=== PATIENT | female | born 1940 | race African-American/Black ===

== ENCOUNTER 2017-11-09 19:41 | Inpatient (IN) | payer MEDICARE, MEDICAID ==
[~2017-11-09] VITALS: Ht 167.6 cm; Wt 145.2 kg
[~2017-11-09 19:41] MED LIST: ATROV INH; FURO-151 PO; LEVO112T2 PO; LOSA100T14 PO; SPIR25TA PO; TIOT18CA3 INH
[2017-11-09] MEDS ORDERED: METHYLPREDNISOLONE SOD SUCC 125 MG/2 ML VIAL IV STA (19:51)
[2017-11-09] MEDS ORDERED: IPRATROPIUM BROMIDE (0.02%) 0.5MG/2.5ML NEB HHN STA (19:51)
[2017-11-09] MEDS ORDERED: MAGNESIUM 2 G PREMIX 50 ML IV ONE (20:00)
[2017-11-09] MEDS ORDERED: VANCOMYCIN 1 G PREMIX 200 ML IV ONE (20:00)
[2017-11-09] MEDS ORDERED: CLOPIDOGREL 75MG TABLET PO ONE (20:00)
[2017-11-09] MEDS ORDERED: LEVOFLOXACIN 750MG PREMIX 150 ML IV ONE (20:00)
[2017-11-09] MEDS: ALBUTEROL (0.083%) 2.5MG/3ML NEB HHN SCH ×2 (20:00→21:17)
[2017-11-09] MEDS ORDERED: NITROGLYCERIN OINT 1GM/INCH UDPKT TD ONE (20:00)
[2017-11-09 20:18] LABS: BG BASE EXCESS 2.4 mmol/L (-2.0-2.0); BG BILEVEL POS AIRWAY PRESSURE 15/5; BG CARBOXYHEMOGLOBIN 1.3 % (0.5-1.5); BG DEOXYHEMOGLOBIN 10.2 % (0.0-5.0); BG FRACTION INSPIRED OXYGEN 50; BG HCO3 ACT 26.8 mmol/L (22.0-26.0); BG METHEMOGLOBIN 0.1 % (0.0-1.5); BG OXYGEN SATURATION 89.7 % (92.0-98.5); BG OXYHEMOGLOBIN 88.4 % (94.0-97.0); BG PCO2 40.7 mmHg (35.0-45.0); BG PH 7.436 (7.350-7.450); BG PO2 57.1 mmHg (75.0-100.0); BG SAMPLE SITE LEFT RADIAL; BG TOTAL HEMOGLOBIN 13.9 g/dL (12.0-18.0); BG VENT MODE MASK - BIPAP; BG VENT RATE 16 set
[2017-11-09 20:42] LABS: BASOPHILS % 1.2 % (0.0-2.0); EOSINOPHILS % 0.3 % (0.0-5.0); HEMATOCRIT. 39.4 % (36.0-48.0); HEMOGLOBIN. 12.8 g/dL (12.0-16.0); LYMPHOCYTES % 39.1 % (20.0-50.0); MEAN CORPUSCULAR HEMOGLOBIN 33.6 pg (28.0-32.0); MEAN CORPUSCULAR VOLUME 103.1 fL (81.0-99.0); MEAN PLATELET VOLUME 8.9 fl (7.4-10.4); MONOCYTES % 6.3 % (2.0-8.0); NEUTROPHILS % 53.1 % (40.0-76.0); PLATELET 132 x1000/uL (130-400); RED BLOOD CELL COUNT 3.82 mill/uL (4.2-5.4); RED CELL DISTRIBUTION WIDTH 15.6 % (11.6-14.6)
[2017-11-09 20:45] LABS: CHLORIDE 97 mEq/L (98-107)
[2017-11-09 20:47] LABS: INR 1.3; PROTHROMBIN TIME 13.4 sec (9.4-11.6)
[2017-11-09 20:50] LABS: ETHANOL BLOOD < 10 mg/dL
[2017-11-09] MEDS ORDERED: ACETAMINOPHEN 325MG TABLET PO STA (21:09)
[2017-11-09] MEDS ORDERED: SODIUM CHLORIDE 0.9% 1000ML BAG (SEPSIS BOLUS) IV ONE (21:15)
[2017-11-09 23:58] LABS: CLARITY URINE CLOUDY (CLEAR); COLOR URINE DARK YELLOW (YELLOW); KETONES URINE TRACE (NEGATIVE); LEUKOCYTE ESTERASE URINE 1+ (NEGATIVE); NITRITE URINE NEGATIVE (NEGATIVE); OCCULT BLOOD URINE 3+ (NEGATIVE); PROTEIN URINE 4+ (NEGATIVE); SPECIFIC GRAVITY URINE 1.022 (1.005-1.030)
[2017-11-10] VITALS (73 sets, daily range): BP systolic 31–173; BP diastolic 18–121
[2017-11-10] MEDS ORDERED: DOCUSATE SODIUM 100MG CAPSULE PO PRN (00:15)
[2017-11-10] MEDS ORDERED: MAGNESIUM/ALUMINUM HYDROXIDE/SIMETHICONE 30ML UDC PO PRN (00:15)
[2017-11-10] MEDS ORDERED: HYDROCODONE/ACETAMINOPHEN 5/325MG TABLET PO PRN (00:15)
[2017-11-10] MEDS ORDERED: FUROSEMIDE 40MG/4ML VIAL IVP SCH (00:15)
[2017-11-10] MEDS ORDERED: ACETAMINOPHEN 650MG/20.3ML UDC GT PRN (00:15)
[2017-11-10] MEDS ORDERED: IPRATROPIUM/ALBUTEROL 0.5-3(2.5)MG/3ML NEB INH PRN (00:15)
[2017-11-10] MEDS ORDERED: ONDANSETRON HCL 4MG/2ML VIAL IV PRN (00:15)
[2017-11-10] MEDS ORDERED: FAMOTIDINE 20MG/2ML VIAL IV ONE (00:15)
[2017-11-10] MEDS ORDERED: GUAIFENESIN 200MG/10ML SUGAR FREE UDC PO PRN (00:15)
[2017-11-10] MEDS ORDERED: ACETAMINOPHEN 650MG SUPP PR PRN (01:01)
[2017-11-10] MEDS ORDERED: ACETAMINOPHEN 650MG SUPP PR ONE (02:00)
[2017-11-10] MEDS ORDERED: SODIUM CHLORIDE 0.9% 1,000 ML IV ONE (04:15)
[2017-11-10] MEDS ORDERED: NOREPINEPHRINE 4 MG in DEXT 5% WATER 246 ML IV ONE ×4 (06:30)
[2017-11-10] MEDS ORDERED: ALBUMIN HUMAN 25GM/100ML (25%) IV NR ×2 (06:30→17:15)
[2017-11-10] MEDS ORDERED: SODIUM CHLORIDE 0.9% 1,000 ML IV SCH (06:30)
[2017-11-10 07:07] LABS: CHLORIDE 102 mEq/L (98-107)
[2017-11-10 07:15] LABS: CREATINE KINASE 647 IU/L (26-192)
[2017-11-10 07:17] LABS: CREATINE KINASE MB FRACTION 4.1 ng/mL (0.5-3.6)
[2017-11-10] MEDS ORDERED: DEXTROSE 50% WATER 50ML SYRINGE IV ONE ×2 (07:28→07:30)
[2017-11-10 07:36] LABS: BG BASE EXCESS -12.7 mmol/L (-2.0-2.0); BG CARBOXYHEMOGLOBIN 0.2 % (0.5-1.5); BG DEOXYHEMOGLOBIN 3.1 % (0.0-5.0); BG FRACTION INSPIRED OXYGEN 100; BG HCO3 ACT 16.2 mmol/L (22.0-26.0); BG OXYGEN SATURATION 96.9 % (92.0-98.5); BG OXYHEMOGLOBIN 95.7 % (94.0-97.0); BG PH 7.138 (7.350-7.450); BG PO2 115.4 mmHg (75.0-100.0); BG SAMPLE SITE LEFT BRACHIAL; BG TOTAL HEMOGLOBIN 13.3 g/dL (12.0-18.0); BG VENT MODE MASK - BIPAP; BG VENT RATE 16 set
[2017-11-10] MEDS ORDERED: DEXT 5%/0.9% NACL 1,000 ML IV SCH (07:45)
[2017-11-10] MEDS ORDERED: NOREPINEPHRINE 4 MG in DEXT 5% WATER 246 ML IV PRN ×2 (08:00→11:00)
[2017-11-10] MEDS ORDERED: SODIUM BICARBONATE 8.4% 1 MEQ/ML 50ML SYR IV NR ×3 (08:15→15:45)
[2017-11-10] MEDS ORDERED: NA PHOS,M-B/NA PHOS,DI-BA ENEMA 118ML PR PRN (09:00)
[2017-11-10] MEDS: METRONIDAZOLE 500 MG PREMIX 100 ML IV SCH ×2 (09:02→17:28)
[2017-11-10] MEDS: BLOOD SUGAR DIAGNOSTIC STRIP TEST SCH ×4 (09:03→20:52)
[2017-11-10] MEDS: METHYLPREDNISOLONE SOD SUCC 40 MG/ML VIAL IV SCH ×2 (09:14→17:30)
[2017-11-10] MEDS: FAMOTIDINE 20MG/2ML VIAL IV SCH (09:14)
[2017-11-10 10:37] LABS: BG BASE EXCESS -10.8 mmol/L (-2.0-2.0); BG BILEVEL POS AIRWAY PRESSURE 15/5; BG DEOXYHEMOGLOBIN 1.2 % (0.0-5.0); BG FRACTION INSPIRED OXYGEN 100; BG HCO3 ACT 17.8 mmol/L (22.0-26.0); BG METHEMOGLOBIN 0.8 % (0.0-1.5); BG OXYGEN SATURATION 98.8 % (92.0-98.5); BG PCO2 50.6 mmHg (35.0-45.0); BG PH 7.164 (7.350-7.450); BG PO2 190.1 mmHg (75.0-100.0); BG SAMPLE SITE RIGHT RADIAL; BG TOTAL HEMOGLOBIN 13.1 g/dL (12.0-18.0); BG VENT MODE MASK - BIPAP
[2017-11-10] MEDS: AZTREONAM 1 G in DEXTROSE 5% WATER 50 ML IV SCH ×2 (10:43→21:16)
[2017-11-10] MEDS ORDERED: SODIUM BICARBONATE 100 MEQ in DEXTROSE 5% WATER 1,000 ML IV SCH (10:45)
[2017-11-10 11:25] LABS: BASOPHILS % 0.5 % (0.0-2.0); HEMATOCRIT. 38.1 % (36.0-48.0); HEMOGLOBIN. 11.9 g/dL (12.0-16.0); LYMPHOCYTES % 11.9 % (20.0-50.0); MEAN CORPUSCULAR HEMOGLOBIN 33.2 pg (28.0-32.0); MEAN CORPUSCULAR VOLUME 106.7 fL (81.0-99.0); MEAN PLATELET VOLUME 9.2 fl (7.4-10.4); MONOCYTES % 4.1 % (2.0-8.0); NEUTROPHILS % 83.5 % (40.0-76.0); RED BLOOD CELL COUNT 3.57 mill/uL (4.2-5.4); RED CELL DISTRIBUTION WIDTH 16.3 % (11.6-14.6)
[2017-11-10 11:26] LABS: PLATELET 26 x1000/uL (130-400)
[2017-11-10] MEDS ORDERED: VANCOMYCIN 1250MG in DEXTROSE 5% WATER 250ML IV NR (12:00)
[2017-11-10] MEDS: SODIUM BICARBONATE 100 MEQ in DEXTROSE 5% WATER 1,000 ML IV SCH (12:19)
[2017-11-10] MEDS: DEXTROSE 50% WATER 50ML SYRINGE IV PRN (12:19)
[2017-11-10 12:26] LABS: D-DIMER > 35.20 mg/L FEU (<0.50)
[2017-11-10 12:36] LABS: PLATELET ESTIMATE MARKEDLY DECREASED
[2017-11-10] MEDS: DOXYCYCLINE 100 MG in DEXT 5% WATER 100 ML IV SCH ×2 (13:40→22:32)
[2017-11-10] MEDS: SODIUM CHLORIDE 0.9% INJ 3ML FLUSH IVF SCH ×2 (14:00→21:16)
[2017-11-10] MEDS: IPRATROPIUM/ALBUTEROL 0.5-3(2.5)MG/3ML NEB INH SCH ×3 (14:00→20:24)
[2017-11-10] MEDS ORDERED: LIDOCAINE HCL/PF 1% 2ML VIAL ONE (14:33)
[2017-11-10 14:54] LABS: CHLORIDE 97 mEq/L (98-107)
[2017-11-10 15:05] LABS: T4 FREE 0.54 ng/dL (0.76-1.46)
[2017-11-10 15:06] LABS: CREATINE KINASE MB FRACTION 15.4 ng/mL (0.5-3.6)
[2017-11-10] MEDS: NOREPINEPHRINE 16 MG in DEXT 5% WATER 234 ML IV PRN (15:11)
[2017-11-10 15:38] LABS: HEPATITIS B SURFACE ANTIGEN NEGATIVE
[2017-11-10] MEDS ORDERED: PHYTONADIONE 10MG/ML AMP SUBCUT NR (15:45)
[2017-11-10 16:05] LABS: BG BASE EXCESS -14.3 mmol/L (-2.0-2.0); BG BILEVEL POS AIRWAY PRESSURE 15/5; BG CARBOXYHEMOGLOBIN 0.3 % (0.5-1.5); BG DEOXYHEMOGLOBIN 0.9 % (0.0-5.0); BG FRACTION INSPIRED OXYGEN 100; BG HCO3 ACT 13.2 mmol/L (22.0-26.0); BG METHEMOGLOBIN 0.5 % (0.0-1.5); BG OXYGEN SATURATION 99.1 % (92.0-98.5); BG OXYHEMOGLOBIN 98.3 % (94.0-97.0); BG PCO2 36.5 mmHg (35.0-45.0); BG PH 7.176 (7.350-7.450); BG PO2 217.6 mmHg (75.0-100.0); BG SAMPLE SITE RIGHT RADIAL; BG TOTAL HEMOGLOBIN 12.8 g/dL (12.0-18.0); BG VENT MODE MASK - BIPAP
[2017-11-10 16:06] LABS: HEPATITIS B CORE AB IGM NEGATIVE
[2017-11-10 16:07] LABS: HEPATITIS A AB IGM NEGATIVE (NEGATIVE)
[2017-11-10 18:23] LABS: BG BASE EXCESS -13.2 mmol/L (-2.0-2.0); BG BILEVEL POS AIRWAY PRESSURE 18/5; BG CARBOXYHEMOGLOBIN 0.2 % (0.5-1.5); BG DEOXYHEMOGLOBIN 4.3 % (0.0-5.0); BG FRACTION INSPIRED OXYGEN 60; BG HCO3 ACT 13.8 mmol/L (22.0-26.0); BG METHEMOGLOBIN 0.2 % (0.0-1.5); BG OXYGEN SATURATION 95.7 % (92.0-98.5); BG OXYHEMOGLOBIN 95.3 % (94.0-97.0); BG PCO2 35.6 mmHg (35.0-45.0); BG PH 7.206 (7.350-7.450); BG PO2 91.5 mmHg (75.0-100.0); BG SAMPLE SITE RIGHT RADIAL; BG TOTAL HEMOGLOBIN 12.4 g/dL (12.0-18.0); BG VENT MODE MASK - BIPAP; BG VENT RATE 20 set
[2017-11-10] MEDS ORDERED: LEVO50TA8 PO (19:56)
[2017-11-10] MEDS ORDERED: POTA-9 PO (19:56)
[2017-11-10] MEDS ORDERED: FURO80TA3 PO (19:56)
[2017-11-10] MEDS ORDERED: LORA1TAB PO (19:56)
[2017-11-10] MEDS ORDERED: ALBU18HF2 IH (19:56)
[2017-11-10] MEDS ORDERED: PHENYLEPHRINE 20 MG in DEXT 5% WATER 248 ML IV PRN (20:30)
[2017-11-10] MEDS ORDERED: SODIUM CHLORIDE 0.9% 1000ML BAG (SEPSIS BOLUS) IV NR (20:30)
[2017-11-11] VITALS (107 sets, daily range): BP systolic 74–157; BP diastolic 33–106
[2017-11-11] MEDS: METRONIDAZOLE 500 MG PREMIX 100 ML IV SCH ×3 (00:13→17:00)
[2017-11-11] MEDS: METHYLPREDNISOLONE SOD SUCC 40 MG/ML VIAL IV SCH ×3 (00:45→17:01)
[2017-11-11] MEDS: IPRATROPIUM/ALBUTEROL 0.5-3(2.5)MG/3ML NEB INH SCH ×4 (01:05→20:57)
[2017-11-11] MEDS: NOREPINEPHRINE 16 MG in DEXT 5% WATER 234 ML IV PRN ×2 (02:40→22:53)
[2017-11-11 04:49] LABS: BASOPHILS % 0.2 % (0.0-2.0); EOSINOPHILS % 0.2 % (0.0-5.0); HEMATOCRIT. 35.2 % (36.0-48.0); HEMOGLOBIN. 10.7 g/dL (12.0-16.0); LYMPHOCYTES % 8.8 % (20.0-50.0); MEAN CORPUSCULAR HEMOGLOBIN 33.6 pg (28.0-32.0); MEAN CORPUSCULAR VOLUME 110.1 fL (81.0-99.0); MEAN PLATELET VOLUME 10.4 fl (7.4-10.4); MONOCYTES % 4.8 % (2.0-8.0); RED CELL DISTRIBUTION WIDTH 17.1 % (11.6-14.6)
[2017-11-11 05:05] LABS: PLATELET 36 x1000/uL (130-400)
[2017-11-11 05:08] LABS: CHLORIDE 98 mEq/L (98-107)
[2017-11-11 05:17] LABS: LDL CHOLESTEROL 44 mg/dL (5-100)
[2017-11-11 05:18] LABS: HDL CHOLESTEROL 36 mg/dL (40-59)
[2017-11-11] MEDS: SODIUM CHLORIDE 0.9% INJ 3ML FLUSH IVF SCH ×3 (05:18→21:13)
[2017-11-11] MEDS: BLOOD SUGAR DIAGNOSTIC STRIP TEST SCH ×4 (06:21→21:00)
[2017-11-11 08:19] LABS: BG BILEVEL POS AIRWAY PRESSURE 20/5; BG CARBOXYHEMOGLOBIN 0.3 % (0.5-1.5); BG DEOXYHEMOGLOBIN 1.6 % (0.0-5.0); BG FRACTION INSPIRED OXYGEN 60; BG HCO3 ACT 18.4 mmol/L (22.0-26.0); BG METHEMOGLOBIN 0.2 % (0.0-1.5); BG OXYGEN SATURATION 98.4 % (92.0-98.5); BG OXYHEMOGLOBIN 97.9 % (94.0-97.0); BG PCO2 45.7 mmHg (35.0-45.0); BG PH 7.222 (7.350-7.450); BG PO2 141.2 mmHg (75.0-100.0); BG SAMPLE SITE RIGHT RADIAL; BG TOTAL HEMOGLOBIN 11.5 g/dL (12.0-18.0); BG VENT MODE MASK - BIPAP; BG VENT RATE 20 set
[2017-11-11] MEDS: FAMOTIDINE 20MG/2ML VIAL IV SCH (08:24)
[2017-11-11] MEDS: DOXYCYCLINE 100 MG in DEXT 5% WATER 100 ML IV SCH ×2 (09:30→20:24)
[2017-11-11] MEDS: SODIUM BICARBONATE 100 MEQ in DEXTROSE 5% WATER 1,000 ML IV SCH ×2 (10:00→20:24)
[2017-11-11] MEDS ORDERED: PROPOFOL 10MG/ML 100ML 100 ML IV PRN (10:00)
[2017-11-11] MEDS: AZTREONAM 1 G in DEXTROSE 5% WATER 50 ML IV SCH (10:45)
[2017-11-11] MEDS ORDERED: VANCOMYCIN 1 G PREMIX 200 ML IV SCH (12:00)
[2017-11-11 13:03] LABS: BG BASE EXCESS -7.7 mmol/L (-2.0-2.0); BG CARBOXYHEMOGLOBIN 0.3 % (0.5-1.5); BG DEOXYHEMOGLOBIN 3.4 % (0.0-5.0); BG FRACTION INSPIRED OXYGEN 50; BG HCO3 ACT 17.8 mmol/L (22.0-26.0); BG OXYGEN SATURATION 96.6 % (92.0-98.5); BG OXYHEMOGLOBIN 96.3 % (94.0-97.0); BG PH 7.311 (7.350-7.450); BG PO2 93.9 mmHg (75.0-100.0); BG SAMPLE SITE LEFT RADIAL; BG TIDAL VOLUME(mL) 550 mL; BG TOTAL HEMOGLOBIN 11.7 g/dL (12.0-18.0); BG VENT MODE VENT - A/C; BG VENT RATE 18 set
[2017-11-11] MEDS: MIDAZOLAM HCL 50 MG in DEXTROSE 5% WATER 40 ML IV PRN (14:26)
[2017-11-11] MEDS: FENTANYL CITRATE/PF 500 MCG in SODIUM CHLORIDE 0.9% 40 ML IV PRN (14:27)
[2017-11-11] MEDS ORDERED: ETOMIDATE 2MG/ML 10ML VIAL IV ONE (14:45)
[2017-11-11] MEDS ORDERED: SUCCINYLCHOLINE CHLORIDE 200MG/10ML VIAL IV ONE (14:45)
[2017-11-11] MEDS: DEXTROSE 50% WATER 50ML SYRINGE IV PRN ×2 (17:02→20:40)
[2017-11-11] MEDS: AZTREONAM 1G in DEXTROSE 5% WATER 50ML IV SCH (22:53)
[2017-11-12] VITALS (84 sets, daily range): BP systolic 91–154; BP diastolic 54–114
[2017-11-12] MEDS: METHYLPREDNISOLONE SOD SUCC 40 MG/ML VIAL IV SCH ×3 (00:52→17:27)
[2017-11-12] MEDS: MIDAZOLAM HCL 50 MG in DEXTROSE 5% WATER 40 ML IV PRN (02:15)
[2017-11-12] MEDS: METRONIDAZOLE 500 MG PREMIX 100 ML IV SCH ×3 (02:15→17:29)
[2017-11-12] MEDS: FENTANYL CITRATE/PF 500 MCG in SODIUM CHLORIDE 0.9% 40 ML IV PRN (02:16)
[2017-11-12] MEDS: IPRATROPIUM/ALBUTEROL 0.5-3(2.5)MG/3ML NEB INH SCH ×4 (02:36→20:19)
[2017-11-12] MEDS: BLOOD SUGAR DIAGNOSTIC STRIP TEST SCH ×3 (05:09→17:03)
[2017-11-12] MEDS: SODIUM CHLORIDE 0.9% INJ 3ML FLUSH IVF SCH ×3 (05:09→21:07)
[2017-11-12 05:40] LABS: HEMATOCRIT. 32.2 % (36.0-48.0); HEMOGLOBIN. 10.6 g/dL (12.0-16.0); MEAN CORPUSCULAR HEMOGLOBIN 34.1 pg (28.0-32.0); MEAN CORPUSCULAR VOLUME 103.4 fL (81.0-99.0); MEAN PLATELET VOLUME 10.5 fl (7.4-10.4); RED BLOOD CELL COUNT 3.11 mill/uL (4.2-5.4); RED CELL DISTRIBUTION WIDTH 16.2 % (11.6-14.6)
[2017-11-12 05:44] LABS: CHLORIDE 92 mEq/L (98-107)
[2017-11-12 07:48] LABS: BG BASE EXCESS -1.8 mmol/L (-2.0-2.0); BG CARBOXYHEMOGLOBIN 0.1 % (0.5-1.5); BG DEOXYHEMOGLOBIN 1.7 % (0.0-5.0); BG METHEMOGLOBIN 0.1 % (0.0-1.5); BG OXYGEN SATURATION 98.3 % (92.0-98.5); BG OXYHEMOGLOBIN 98.1 % (94.0-97.0); BG PCO2 29.2 mmHg (35.0-45.0); BG PH 7.474 (7.350-7.450); BG PO2 125.6 mmHg (75.0-100.0); BG SAMPLE SITE RIGHT RADIAL; BG TIDAL VOLUME(mL) 550 mL; BG TOTAL HEMOGLOBIN 10.9 g/dL (12.0-18.0); BG VENT MODE VENT - A/C; BG VENT RATE 18 set
[2017-11-12] MEDS: AZTREONAM 1G in DEXTROSE 5% WATER 50ML IV SCH (08:11)
[2017-11-12] MEDS: FAMOTIDINE 20MG/2ML VIAL IV SCH (08:11)
[2017-11-12] MEDS: DOXYCYCLINE 100 MG in DEXT 5% WATER 100 ML IV SCH ×2 (08:50→20:28)
[2017-11-12 12:06] LABS: TOTAL IRON BINDING CAPACITY 247 ug/dL (250-450)
[2017-11-12 12:08] LABS: AMMONIA 47 uMol/L (<32)
[2017-11-12 12:36] LABS: CREATINE KINASE 3066 IU/L (26-192)
[2017-11-12 12:57] LABS: FERRITIN > 1650 ng/mL (10-291)
[2017-11-12 12:57] LABS: NUCLEATED RED BLOOD CELLS 2 /100 WBC; PLATELET ESTIMATE MARKEDLY DECREASED
[2017-11-12 12:58] LABS: PLATELET 26 x1000/uL (130-400)
[2017-11-12 14:49] LABS: FOLIC ACID (FOLATE) SERUM > 20.00 ng/mL (>5.38); VITAMIN B12 SERUM > 2000.0 pg/mL (211-911)
[2017-11-12] MEDS: DEXTROSE 50% WATER 50ML SYRINGE IV PRN (17:27)
[2017-11-13] VITALS (96 sets, daily range): BP systolic 87–145; BP diastolic 48–89
[2017-11-13] MEDS: METHYLPREDNISOLONE SOD SUCC 40 MG/ML VIAL IV SCH ×3 (00:03→21:50)
[2017-11-13] MEDS: BLOOD SUGAR DIAGNOSTIC STRIP TEST SCH ×4 (00:04→19:00)
[2017-11-13] MEDS: DEXTROSE 50% WATER 50ML SYRINGE IV PRN ×5 (00:09→02:03)
[2017-11-13] MEDS ORDERED: DEXTROSE 5% WATER 1,000 ML IV SCH (00:45)
[2017-11-13] MEDS: METRONIDAZOLE 500 MG PREMIX 100 ML IV SCH ×3 (01:06→17:48)
[2017-11-13] MEDS: IPRATROPIUM/ALBUTEROL 0.5-3(2.5)MG/3ML NEB INH SCH ×4 (01:48→20:13)
[2017-11-13 02:57] LABS: CHLORIDE 94 mEq/L (98-107)
[2017-11-13] MEDS ORDERED: DEXTROSE 10% WATER 1,000 ML IV SCH ×2 (03:00→07:30)
[2017-11-13] MEDS ORDERED: DEXT 10% WATER 1,000 ML IV SCH (03:00)
[2017-11-13 03:01] LABS: HEMATOCRIT. 30.3 % (36.0-48.0); HEMOGLOBIN. 10.2 g/dL (12.0-16.0); MEAN CORPUSCULAR HEMOGLOBIN 34.1 pg (28.0-32.0); MEAN CORPUSCULAR VOLUME 101.6 fL (81.0-99.0); MEAN PLATELET VOLUME 9.8 fl (7.4-10.4); RED BLOOD CELL COUNT 2.98 mill/uL (4.2-5.4); RED CELL DISTRIBUTION WIDTH 15.8 % (11.6-14.6)
[2017-11-13 03:03] LABS: PHOSPHORUS 3.7 mg/dL (2.5-4.9)
[2017-11-13 03:12] LABS: PLATELET 38 x1000/uL (130-400)
[2017-11-13 03:18] LABS: CREATINE KINASE 2210 IU/L (26-192)
[2017-11-13] MEDS: SODIUM CHLORIDE 0.9% INJ 3ML FLUSH IVF SCH ×3 (05:11→21:50)
[2017-11-13 07:26] LABS: NUCLEATED RED BLOOD CELLS 1 /100 WBC; PLATELET ESTIMATE MARKEDLY DECREASED
[2017-11-13] MEDS: FAMOTIDINE 20MG/2ML VIAL IV SCH (08:26)
[2017-11-13] MEDS: DOXYCYCLINE 100 MG in DEXT 5% WATER 100 ML IV SCH ×2 (08:26→21:50)
[2017-11-13] MEDS: METOCLOPRAMIDE HCL 10MG/2ML VIAL IV SCH ×3 (08:26→21:50)
[2017-11-13 08:37] LABS: BG BASE EXCESS 0.9 mmol/L (-2.0-2.0); BG DEOXYHEMOGLOBIN 1.6 % (0.0-5.0); BG FRACTION INSPIRED OXYGEN 50; BG HCO3 ACT 24.4 mmol/L (22.0-26.0); BG METHEMOGLOBIN 0.1 % (0.0-1.5); BG OXYGEN SATURATION 98.4 % (92.0-98.5); BG OXYHEMOGLOBIN 98.3 % (94.0-97.0); BG PCO2 35.1 mmHg (35.0-45.0); BG PO2 128.2 mmHg (75.0-100.0); BG SAMPLE SITE RIGHT BRACHIAL; BG TIDAL VOLUME(mL) 550 mL; BG TOTAL HEMOGLOBIN 11.7 g/dL (12.0-18.0); BG VENT MODE VENT - A/C; BG VENT RATE 14 set
[2017-11-13 09:33] LABS: AMMONIA 67 uMol/L (<32)
[2017-11-13 09:37] LABS: INR 3.8; PROTHROMBIN TIME 39.4 sec (9.4-11.6)
[2017-11-13] MEDS ORDERED: VANCOMYCIN IV SCH (10:00)
[2017-11-13] MEDS ORDERED: DEXT 5% IV SCH (10:00)
[2017-11-13] MEDS ORDERED: WATER IV SCH (10:00)
[2017-11-13] MEDS ORDERED: VANCOMYCIN 1 G PREMIX 200 ML IV NR (10:00)
[2017-11-13] MEDS ORDERED: METOCLOPRAMIDE HCL 10MG/2ML VIAL IV SCH (12:00)
[2017-11-13] MEDS: LACTULOSE 20G/30ML UDC PO SCH ×2 (13:24→17:48)
[2017-11-14] VITALS (94 sets, daily range): BP systolic 73–146; BP diastolic 19–98
[2017-11-14] MEDS: BLOOD SUGAR DIAGNOSTIC STRIP TEST SCH ×5 (00:03→23:55)
[2017-11-14] MEDS: IPRATROPIUM/ALBUTEROL 0.5-3(2.5)MG/3ML NEB INH SCH ×4 (03:18→20:36)
[2017-11-14] MEDS: METRONIDAZOLE 500 MG PREMIX 100 ML IV SCH ×3 (03:57→17:51)
[2017-11-14] MEDS: DEXTROSE 5% WATER 1,000 ML IV SCH ×2 (04:17→23:38)
[2017-11-14 05:32] LABS: HEMATOCRIT. 34.9 % (36.0-48.0); HEMOGLOBIN. 11.5 g/dL (12.0-16.0); MEAN CORPUSCULAR HEMOGLOBIN 33.2 pg (28.0-32.0); MEAN CORPUSCULAR VOLUME 100.8 fL (81.0-99.0); MEAN PLATELET VOLUME 10.7 fl (7.4-10.4); RED BLOOD CELL COUNT 3.47 mill/uL (4.2-5.4); RED CELL DISTRIBUTION WIDTH 15.4 % (11.6-14.6)
[2017-11-14 05:33] LABS: AMMONIA 63 uMol/L (<32)
[2017-11-14] MEDS: SODIUM CHLORIDE 0.9% INJ 3ML FLUSH IVF SCH ×3 (05:40→21:33)
[2017-11-14] MEDS: METOCLOPRAMIDE HCL 10MG/2ML VIAL IV SCH ×3 (05:41→21:32)
[2017-11-14 05:43] LABS: CHLORIDE 95 mEq/L (98-107)
[2017-11-14 05:44] LABS: PLATELET 37 x1000/uL (130-400)
[2017-11-14 06:01] LABS: PHOSPHORUS 2.9 mg/dL (2.5-4.9)
[2017-11-14 06:24] LABS: CREATINE KINASE 1398 IU/L (26-192)
[2017-11-14 06:54] LABS: NUCLEATED RED BLOOD CELLS 2 /100 WBC; PLATELET ESTIMATE MARKEDLY DECREASED
[2017-11-14] MEDS: METHYLPREDNISOLONE SOD SUCC 40 MG/ML VIAL IV SCH (08:59)
[2017-11-14] MEDS: DOXYCYCLINE 100 MG in DEXT 5% WATER 100 ML IV SCH ×2 (08:59→21:32)
[2017-11-14] MEDS: LACTULOSE 20G/30ML UDC PO SCH (08:59)
[2017-11-14] MEDS: FAMOTIDINE 20MG/2ML VIAL IV SCH (09:00)
[2017-11-14] MEDS ORDERED: MAGNESIUM 2 G PREMIX 50 ML IV ONE (09:30)
[2017-11-14 10:07] LABS: BG BASE EXCESS 2.8 mmol/L (-2.0-2.0); BG CARBOXYHEMOGLOBIN 0.7 % (0.5-1.5); BG DEOXYHEMOGLOBIN 2.4 % (0.0-5.0); BG HCO3 ACT 26.3 mmol/L (22.0-26.0); BG METHEMOGLOBIN 0.1 % (0.0-1.5); BG OXYGEN SATURATION 97.6 % (92.0-98.5); BG OXYHEMOGLOBIN 96.8 % (94.0-97.0); BG PCO2 36.8 mmHg (35.0-45.0); BG PH 7.472 (7.350-7.450); BG PO2 101.7 mmHg (75.0-100.0); BG SAMPLE SITE RIGHT RADIAL; BG TIDAL VOLUME(mL) 550 mL; BG TOTAL HEMOGLOBIN 13.3 g/dL (12.0-18.0); BG VENT MODE VENT - A/C; BG VENT RATE 14 set
[2017-11-14] MEDS ORDERED: MAGNESIUM SULFATE 2 GM in DEXTROSE 5% WATER 50 ML IV NR (10:30)
[2017-11-14] MEDS ORDERED: LACTULOSE 300 ML in WATER FOR IRRIGATION,STERILE 700 ML PR SCH (11:00)
[2017-11-14] MEDS: NYSTATIN POWDER 15GM TOP SCH (15:25)
[2017-11-15] VITALS (97 sets, daily range): BP systolic 85–165; BP diastolic 42–101
[2017-11-15] MEDS: METRONIDAZOLE 500 MG PREMIX 100 ML IV SCH ×3 (01:31→17:10)
[2017-11-15] MEDS: IPRATROPIUM/ALBUTEROL 0.5-3(2.5)MG/3ML NEB INH SCH ×2 (01:54→20:25)
[2017-11-15 04:33] LABS: HEMATOCRIT. 36.8 % (36.0-48.0); HEMOGLOBIN. 12.1 g/dL (12.0-16.0); MEAN CORPUSCULAR HEMOGLOBIN 33.1 pg (28.0-32.0); MEAN CORPUSCULAR VOLUME 100.7 fL (81.0-99.0); MEAN PLATELET VOLUME 11.1 fl (7.4-10.4); RED BLOOD CELL COUNT 3.65 mill/uL (4.2-5.4); RED CELL DISTRIBUTION WIDTH 15.6 % (11.6-14.6)
[2017-11-15 04:43] LABS: CHLORIDE 95 mEq/L (98-107)
[2017-11-15 04:53] LABS: PHOSPHORUS 3.1 mg/dL (2.5-4.9)
[2017-11-15] MEDS: SODIUM CHLORIDE 0.9% INJ 3ML FLUSH IVF SCH ×3 (05:16→21:03)
[2017-11-15] MEDS: BLOOD SUGAR DIAGNOSTIC STRIP TEST SCH ×3 (05:44→17:44)
[2017-11-15] MEDS: METOCLOPRAMIDE HCL 10MG/2ML VIAL IV SCH ×3 (05:44→21:02)
[2017-11-15 06:51] LABS: NUCLEATED RED BLOOD CELLS 4 /100 WBC
[2017-11-15 06:52] LABS: PLATELET ESTIMATE MARKEDLY DECREASED
[2017-11-15 06:53] LABS: PLATELET 41 x1000/uL (130-400)
[2017-11-15 09:22] LABS: BG BASE EXCESS 3.8 mmol/L (-2.0-2.0); BG DEOXYHEMOGLOBIN 0.9 % (0.0-5.0); BG FRACTION INSPIRED OXYGEN 50; BG HCO3 ACT 29.5 mmol/L (22.0-26.0); BG METHEMOGLOBIN 0.3 % (0.0-1.5); BG OXYGEN SATURATION 99.1 % (92.0-98.5); BG OXYHEMOGLOBIN 97.8 % (94.0-97.0); BG PCO2 48.7 mmHg (35.0-45.0); BG PO2 148.1 mmHg (75.0-100.0); BG SAMPLE SITE RIGHT RADIAL; BG TIDAL VOLUME(mL) 550 mL; BG VENT MODE VENT - A/C; BG VENT RATE 10 set
[2017-11-15] MEDS: DOXYCYCLINE 100 MG in DEXT 5% WATER 100 ML IV SCH ×2 (09:55→21:02)
[2017-11-15] MEDS: NYSTATIN POWDER 15GM TOP SCH (09:55)
[2017-11-15] MEDS: FAMOTIDINE 20MG/2ML VIAL IV SCH (09:55)
[2017-11-15] MEDS ORDERED: LACTULOSE 300 ML in WATER FOR IRRIGATION,STERILE 700 ML PR PRN (10:45)
[2017-11-15 11:16] LABS: INR 2.4; PROTHROMBIN TIME 25.4 sec (9.4-11.6)
[2017-11-15] MEDS ORDERED: VANCOMYCIN 1 G PREMIX 200 ML IV NR (15:00)
[2017-11-15] MEDS: THIAMINE HCL 100MG TABLET PO SCH (17:10)
[2017-11-15 20:12] LABS: AMMONIA 36 uMol/L (<32)
[2017-11-15] MEDS: DEXTROSE 5% WATER 1,000 ML IV SCH (21:04)
[2017-11-16] VITALS (64 sets, daily range): BP systolic 106–202; BP diastolic 42–125
[2017-11-16] MEDS: METRONIDAZOLE 500 MG PREMIX 100 ML IV SCH ×3 (01:26→17:31)
[2017-11-16] MEDS: IPRATROPIUM/ALBUTEROL 0.5-3(2.5)MG/3ML NEB INH SCH ×4 (01:53→20:18)
[2017-11-16] MEDS: BLOOD SUGAR DIAGNOSTIC STRIP TEST SCH ×4 (05:06→17:31)
[2017-11-16] MEDS: SODIUM CHLORIDE 0.9% INJ 3ML FLUSH IVF SCH ×3 (05:06→21:00)
[2017-11-16] MEDS: METOCLOPRAMIDE HCL 10MG/2ML VIAL IV SCH ×3 (05:06→21:00)
[2017-11-16 05:39] LABS: HEMATOCRIT. 35.6 % (36.0-48.0); HEMOGLOBIN. 11.8 g/dL (12.0-16.0); MEAN CORPUSCULAR HEMOGLOBIN 33.2 pg (28.0-32.0); MEAN CORPUSCULAR VOLUME 100.2 fL (81.0-99.0); MEAN PLATELET VOLUME 10.7 fl (7.4-10.4); PLATELET 57 x1000/uL (130-400); RED BLOOD CELL COUNT 3.56 mill/uL (4.2-5.4); RED CELL DISTRIBUTION WIDTH 16.3 % (11.6-14.6)
[2017-11-16 05:50] LABS: AMMONIA 44 uMol/L (<32)
[2017-11-16 05:58] LABS: CHLORIDE 94 mEq/L (98-107)
[2017-11-16 06:11] LABS: PHOSPHORUS 2.8 mg/dL (2.5-4.9)
[2017-11-16 07:16] LABS: BG BASE EXCESS 2.8 mmol/L (-2.0-2.0); BG CARBOXYHEMOGLOBIN 1.1 % (0.5-1.5); BG DEOXYHEMOGLOBIN 3.8 % (0.0-5.0); BG HCO3 ACT 26.7 mmol/L (22.0-26.0); BG METHEMOGLOBIN 0.1 % (0.0-1.5); BG OXYGEN SATURATION 96.2 % (92.0-98.5); BG PCO2 38.5 mmHg (35.0-45.0); BG PH 7.459 (7.350-7.450); BG PO2 81.2 mmHg (75.0-100.0); BG SAMPLE SITE RIGHT RADIAL; BG TIDAL VOLUME(mL) 550 mL; BG TOTAL HEMOGLOBIN 13.3 g/dL (12.0-18.0); BG VENT MODE VENT - SIMV; BG VENT RATE 10 set
[2017-11-16 07:27] LABS: NUCLEATED RED BLOOD CELLS 2 /100 WBC; PLATELET ESTIMATE DECREASED
[2017-11-16] MEDS: DOXYCYCLINE 100 MG in DEXT 5% WATER 100 ML IV SCH ×2 (09:16→20:57)
[2017-11-16] MEDS: THIAMINE HCL 100MG TABLET PO SCH (09:16)
[2017-11-16] MEDS: FAMOTIDINE 20MG/2ML VIAL IV SCH (09:16)
[2017-11-16] MEDS: NYSTATIN POWDER 15GM TOP SCH (09:17)
[2017-11-16 09:51] LABS: BG BASE EXCESS 6.5 mmol/L (-2.0-2.0); BG CARBOXYHEMOGLOBIN 1.4 % (0.5-1.5); BG CPAP (cmH2O) 0 cm(H2O); BG DEOXYHEMOGLOBIN 4.6 % (0.0-5.0); BG METHEMOGLOBIN 0.3 % (0.0-1.5); BG OXYGEN SATURATION 95.3 % (92.0-98.5); BG OXYHEMOGLOBIN 93.7 % (94.0-97.0); BG PCO2 43.9 mmHg (35.0-45.0); BG PH 7.467 (7.350-7.450); BG PO2 79.6 mmHg (75.0-100.0); BG SAMPLE SITE RIGHT RADIAL; BG TOTAL HEMOGLOBIN 13.5 g/dL (12.0-18.0); BG VENT MODE VENT - CPAP
[2017-11-16] MEDS ORDERED: METHYLPREDNISOLONE SOD SUCC 125 MG/2 ML VIAL IV NR (11:20)
[2017-11-16] MEDS ORDERED: PROPOFOL 10MG/ML 100ML 100 ML IV PRN (11:45)
[2017-11-16] MEDS ORDERED: LORAZEPAM 2MG/ML CPJ IV PRN (11:45)
[2017-11-16 11:48] LABS: BG BASE EXCESS -1.2 mmol/L (-2.0-2.0); BG CARBOXYHEMOGLOBIN 0.6 % (0.5-1.5); BG DEOXYHEMOGLOBIN 1.2 % (0.0-5.0); BG HCO3 ACT 24.1 mmol/L (22.0-26.0); BG METHEMOGLOBIN 0.5 % (0.0-1.5); BG OXYGEN SATURATION 98.8 % (92.0-98.5); BG OXYHEMOGLOBIN 97.7 % (94.0-97.0); BG PCO2 42.6 mmHg (35.0-45.0); BG PH 7.371 (7.350-7.450); BG PO2 163.7 mmHg (75.0-100.0); BG SAMPLE SITE RIGHT RADIAL; BG TIDAL VOLUME(mL) 550 mL; BG TOTAL HEMOGLOBIN 13.9 g/dL (12.0-18.0); BG VENT MODE VENT - A/C; BG VENT RATE 12 set
[2017-11-16] MEDS ORDERED: ETOMIDATE 2MG/ML 10ML VIAL IV ONE (14:02)
[2017-11-16] MEDS: DEXT 5%/0.9% NACL 1,000 ML IV SCH (15:20)
[2017-11-16] MEDS ORDERED: ERYTHROMYCIN LACTOBIONATE 500 MG in SODIUM CHLORIDE 0.9% 100 ML IV SCH (16:00)
[2017-11-16] MEDS: METHYLPREDNISOLONE SOD SUCC 125 MG/2 ML VIAL IV SCH (17:31)
[2017-11-17] VITALS (49 sets, daily range): BP systolic 95–157; BP diastolic 53–87
[2017-11-17] MEDS: BLOOD SUGAR DIAGNOSTIC STRIP TEST SCH ×4 (00:44→17:23)
[2017-11-17] MEDS: METHYLPREDNISOLONE SOD SUCC 125 MG/2 ML VIAL IV SCH ×2 (00:44→06:14)
[2017-11-17] MEDS: METRONIDAZOLE 500 MG PREMIX 100 ML IV SCH ×3 (01:04→17:23)
[2017-11-17] MEDS: IPRATROPIUM/ALBUTEROL 0.5-3(2.5)MG/3ML NEB INH SCH ×5 (02:24→20:04)
[2017-11-17 05:44] LABS: HEMOGLOBIN. 11.7 g/dL (12.0-16.0); MEAN CORPUSCULAR HEMOGLOBIN 33.7 pg (28.0-32.0); MEAN CORPUSCULAR VOLUME 100.4 fL (81.0-99.0); PLATELET 63 x1000/uL (130-400); RED BLOOD CELL COUNT 3.48 mill/uL (4.2-5.4); RED CELL DISTRIBUTION WIDTH 15.8 % (11.6-14.6)
[2017-11-17 05:53] LABS: CHLORIDE 94 mEq/L (98-107)
[2017-11-17 05:56] LABS: AMMONIA 27 uMol/L (<32)
[2017-11-17 06:02] LABS: PHOSPHORUS 3.2 mg/dL (2.5-4.9)
[2017-11-17] MEDS: SODIUM CHLORIDE 0.9% INJ 3ML FLUSH IVF SCH ×3 (06:14→21:24)
[2017-11-17] MEDS: METOCLOPRAMIDE HCL 10MG/2ML VIAL IV SCH ×3 (06:14→21:24)
[2017-11-17 07:05] LABS: NUCLEATED RED BLOOD CELLS 3 /100 WBC; PLATELET ESTIMATE DECREASED
[2017-11-17] MEDS: DOXYCYCLINE 100 MG in DEXT 5% WATER 100 ML IV SCH ×2 (08:31→21:24)
[2017-11-17] MEDS: THIAMINE HCL 100MG TABLET PO SCH (08:31)
[2017-11-17] MEDS: FAMOTIDINE 20MG/2ML VIAL IV SCH (08:31)
[2017-11-17] MEDS: NYSTATIN POWDER 15GM TOP SCH (08:32)
[2017-11-17] MEDS: DEXT 5%/0.9% NACL 1,000 ML IV SCH (12:08)
[2017-11-17 13:27] LABS: BG BASE EXCESS 3.9 mmol/L (-2.0-2.0); BG CARBOXYHEMOGLOBIN 0.7 % (0.5-1.5); BG DEOXYHEMOGLOBIN 1.4 % (0.0-5.0); BG FRACTION INSPIRED OXYGEN 50; BG HCO3 ACT 28.5 mmol/L (22.0-26.0); BG METHEMOGLOBIN 0.1 % (0.0-1.5); BG OXYGEN SATURATION 98.6 % (92.0-98.5); BG OXYHEMOGLOBIN 97.8 % (94.0-97.0); BG PCO2 42.9 mmHg (35.0-45.0); BG PRESSURE SUPPORT 12; BG SAMPLE SITE RIGHT RADIAL; BG TIDAL VOLUME(mL) 550 mL; BG TOTAL HEMOGLOBIN 12.6 g/dL (12.0-18.0); BG VENT MODE VENT - SIMV; BG VENT RATE 10 set
[2017-11-17 14:32] LABS: BG BASE EXCESS 1.6 mmol/L (-2.0-2.0); BG CARBOXYHEMOGLOBIN 0.7 % (0.5-1.5); BG DEOXYHEMOGLOBIN 1.8 % (0.0-5.0); BG FRACTION INSPIRED OXYGEN 50; BG HCO3 ACT 25.3 mmol/L (22.0-26.0); BG METHEMOGLOBIN 0.1 % (0.0-1.5); BG OXYGEN SATURATION 98.2 % (92.0-98.5); BG OXYHEMOGLOBIN 97.4 % (94.0-97.0); BG PCO2 36.9 mmHg (35.0-45.0); BG PH 7.454 (7.350-7.450); BG PO2 117.7 mmHg (75.0-100.0); BG PRESSURE SUPPORT 12; BG SAMPLE SITE RIGHT RADIAL; BG TIDAL VOLUME(mL) 550 mL; BG TOTAL HEMOGLOBIN 12.4 g/dL (12.0-18.0); BG VENT MODE VENT - SIMV; BG VENT RATE 10 set
[2017-11-17] MEDS ORDERED: VANCOMYCIN 750 MG PREMIX 150 ML IV SCH (15:00)
[2017-11-17] MEDS: BUDESONIDE 0.5MG/2ML NEB HHN SCH (20:05)
[2017-11-18] VITALS (42 sets, daily range): BP systolic 98–169; BP diastolic 60–117
[2017-11-18] MEDS: IPRATROPIUM/ALBUTEROL 0.5-3(2.5)MG/3ML NEB INH SCH ×4 (01:36→20:29)
[2017-11-18 04:45] LABS: HEMOGLOBIN. 12.7 g/dL (12.0-16.0); MEAN CORPUSCULAR HEMOGLOBIN 33.4 pg (28.0-32.0); MEAN CORPUSCULAR VOLUME 99.8 fL (81.0-99.0); MEAN PLATELET VOLUME 9.2 fl (7.4-10.4); PLATELET 90 x1000/uL (130-400); RED BLOOD CELL COUNT 3.81 mill/uL (4.2-5.4)
[2017-11-18 04:56] LABS: PHOSPHORUS 3.6 mg/dL (2.5-4.9)
[2017-11-18] MEDS: BLOOD SUGAR DIAGNOSTIC STRIP TEST SCH ×5 (06:00→23:54)
[2017-11-18] MEDS: SODIUM CHLORIDE 0.9% INJ 3ML FLUSH IVF SCH ×2 (06:00→22:53)
[2017-11-18] MEDS: METOCLOPRAMIDE HCL 10MG/2ML VIAL IV SCH ×3 (06:32→21:09)
[2017-11-18] MEDS: BUDESONIDE 0.5MG/2ML NEB HHN SCH ×2 (08:26→20:29)
[2017-11-18 09:01] LABS: NUCLEATED RED BLOOD CELLS 4 /100 WBC; PLATELET ESTIMATE DECREASED
[2017-11-18] MEDS ORDERED: SODIUM CHLORIDE 0.9% 1,000 ML IV ONE (09:15)
[2017-11-18 09:43] LABS: BG BASE EXCESS 2.5 mmol/L (-2.0-2.0); BG CARBOXYHEMOGLOBIN 0.9 % (0.5-1.5); BG DEOXYHEMOGLOBIN 2.4 % (0.0-5.0); BG FRACTION INSPIRED OXYGEN 50; BG HCO3 ACT 28.3 mmol/L (22.0-26.0); BG METHEMOGLOBIN 0.2 % (0.0-1.5); BG OXYGEN SATURATION 97.6 % (92.0-98.5); BG OXYHEMOGLOBIN 96.5 % (94.0-97.0); BG PCO2 48.1 mmHg (35.0-45.0); BG PH 7.387 (7.350-7.450); BG PO2 104.2 mmHg (75.0-100.0); BG PRESSURE SUPPORT 12; BG SAMPLE SITE RIGHT RADIAL; BG TIDAL VOLUME(mL) 550 mL; BG TOTAL HEMOGLOBIN 13.2 g/dL (12.0-18.0); BG VENT MODE VENT - SIMV; BG VENT RATE 10 set
[2017-11-18] MEDS: THIAMINE HCL 100MG TABLET PO SCH (09:49)
[2017-11-18] MEDS: FAMOTIDINE 20MG/2ML VIAL IV SCH (09:49)
[2017-11-18] MEDS: NYSTATIN POWDER 15GM TOP SCH (09:50)
[2017-11-18] MEDS: DEXT 5%/0.9% NACL 1,000 ML IV SCH (09:53)
[2017-11-18] MEDS: DOXYCYCLINE 100 MG in DEXT 5% WATER 100 ML IV SCH ×2 (12:39→21:09)
[2017-11-18] MEDS: PANTOPRAZOLE SODIUM 40 MG/VIAL IV SCH ×2 (12:40→21:09)
[2017-11-18] MEDS: CLONIDINE 0.1MG TABLET PO PRN (21:12)
[2017-11-18 22:32] LABS: CLARITY URINE CLEAR (CLEAR); COLOR URINE DARK YELLOW (YELLOW); KETONES URINE NEGATIVE (NEGATIVE); LEUKOCYTE ESTERASE URINE TRACE (NEGATIVE); NITRITE URINE NEGATIVE (NEGATIVE); OCCULT BLOOD URINE 3+ (NEGATIVE); PROTEIN URINE 2+ (NEGATIVE); SPECIFIC GRAVITY URINE 1.011 (1.005-1.030); UROBILINOGEN URINE 0.2 E.U./dL (0.2-1.0)
[2017-11-19] VITALS (37 sets, daily range): BP systolic 95–184; BP diastolic 60–108
[2017-11-19] MEDS: IPRATROPIUM/ALBUTEROL 0.5-3(2.5)MG/3ML NEB INH SCH ×4 (01:28→19:50)
[2017-11-19] MEDS: DEXT 5%/0.9% NACL 1,000 ML IV SCH ×2 (03:20→23:57)
[2017-11-19] MEDS: SODIUM CHLORIDE 0.9% INJ 3ML FLUSH IVF SCH ×2 (05:10→22:00)
[2017-11-19 05:43] LABS: HEMATOCRIT. 37.2 % (36.0-48.0); HEMOGLOBIN. 12.3 g/dL (12.0-16.0); MEAN CORPUSCULAR HEMOGLOBIN 33.1 pg (28.0-32.0); MEAN CORPUSCULAR VOLUME 99.8 fL (81.0-99.0); MEAN PLATELET VOLUME 9.4 fl (7.4-10.4); PLATELET 93 x1000/uL (130-400); RED BLOOD CELL COUNT 3.73 mill/uL (4.2-5.4); RED CELL DISTRIBUTION WIDTH 16.2 % (11.6-14.6)
[2017-11-19] MEDS: METOCLOPRAMIDE HCL 10MG/2ML VIAL IV SCH ×3 (05:49→21:44)
[2017-11-19] MEDS: BLOOD SUGAR DIAGNOSTIC STRIP TEST SCH ×2 (05:49→13:00)
[2017-11-19 05:59] LABS: CHLORIDE 98 mEq/L (98-107)
[2017-11-19 06:10] LABS: PHOSPHORUS 4.1 mg/dL (2.5-4.9)
[2017-11-19] MEDS: CLONIDINE 0.1MG TABLET PO PRN (06:41)
[2017-11-19] MEDS ORDERED: LIDOCAINE HCL 1% 20ML VIAL (Pyxis) INJ ONE (07:23)
[2017-11-19] MEDS: BUDESONIDE 0.5MG/2ML NEB HHN SCH ×2 (08:06→19:50)
[2017-11-19] MEDS: NYSTATIN POWDER 15GM TOP SCH (09:00)
[2017-11-19] MEDS: PANTOPRAZOLE SODIUM 40 MG/VIAL IV SCH ×2 (09:43→20:27)
[2017-11-19] MEDS: DOXYCYCLINE 100 MG in DEXT 5% WATER 100 ML IV SCH ×2 (09:43→21:44)
[2017-11-19 10:03] LABS: NUCLEATED RED BLOOD CELLS 2 /100 WBC; PLATELET ESTIMATE SLIGHTLY DECREASED
[2017-11-19] MEDS ORDERED: FENTANYL CITRATE/PF 50MCG/ML 2ML VIAL IV PRN (11:45)
[2017-11-19 12:00] LABS: BG BASE EXCESS 1.2 mmol/L (-2.0-2.0); BG CARBOXYHEMOGLOBIN 0.7 % (0.5-1.5); BG CPAP (cmH2O) 0 cm(H2O); BG DEOXYHEMOGLOBIN 2.4 % (0.0-5.0); BG HCO3 ACT 27.7 mmol/L (22.0-26.0); BG METHEMOGLOBIN 0.1 % (0.0-1.5); BG OXYGEN SATURATION 97.6 % (92.0-98.5); BG OXYHEMOGLOBIN 96.8 % (94.0-97.0); BG PCO2 52.1 mmHg (35.0-45.0); BG PH 7.344 (7.350-7.450); BG PO2 107.1 mmHg (75.0-100.0); BG SAMPLE SITE RIGHT RADIAL; BG TOTAL HEMOGLOBIN 13.1 g/dL (12.0-18.0); BG VENT MODE VENT - CPAP
[2017-11-19] MEDS ORDERED: LIDOCAINE HCL 2% JELLY 5ML MM SCH (14:00)
[2017-11-19] MEDS ORDERED: VANCOMYCIN 750 MG PREMIX 150 ML IV SCH (21:00)
[2017-11-20] VITALS (32 sets, daily range): BP systolic 100–144; BP diastolic 53–93
[2017-11-20] MEDS: BLOOD SUGAR DIAGNOSTIC STRIP TEST SCH ×4 (00:05→18:36)
[2017-11-20] MEDS: IPRATROPIUM/ALBUTEROL 0.5-3(2.5)MG/3ML NEB INH SCH ×4 (02:04→19:50)
[2017-11-20] MEDS: SODIUM CHLORIDE 0.9% INJ 3ML FLUSH IVF SCH ×3 (05:11→21:12)
[2017-11-20] MEDS: METOCLOPRAMIDE HCL 10MG/2ML VIAL IV SCH ×3 (05:18→21:11)
[2017-11-20 05:33] LABS: HEMOGLOBIN. 12.2 g/dL (12.0-16.0); MEAN CORPUSCULAR HEMOGLOBIN 32.9 pg (28.0-32.0); MEAN CORPUSCULAR VOLUME 99.7 fL (81.0-99.0); MEAN PLATELET VOLUME 9.6 fl (7.4-10.4); PLATELET 87 x1000/uL (130-400); RED BLOOD CELL COUNT 3.71 mill/uL (4.2-5.4); RED CELL DISTRIBUTION WIDTH 16.1 % (11.6-14.6)
[2017-11-20 05:37] LABS: CHLORIDE 99 mEq/L (98-107)
[2017-11-20 05:46] LABS: PHOSPHORUS 4.1 mg/dL (2.5-4.9)
[2017-11-20] MEDS ORDERED: DEXT 5%/0.9% NACL 1,000 ML IV SCH (07:43)
[2017-11-20] MEDS: BUDESONIDE 0.5MG/2ML NEB HHN SCH (08:03)
[2017-11-20] MEDS ORDERED: MAGNESIUM 2 G PREMIX 50 ML IV ONE (08:15)
[2017-11-20] MEDS: PANTOPRAZOLE SODIUM 40 MG/VIAL IV SCH ×2 (09:04→21:10)
[2017-11-20] MEDS: DOXYCYCLINE 100 MG in DEXT 5% WATER 100 ML IV SCH ×2 (09:04→21:10)
[2017-11-20] MEDS: THIAMINE HCL 100MG TABLET PO SCH (09:04)
[2017-11-20] MEDS: NYSTATIN POWDER 15GM TOP SCH (09:05)
[2017-11-20] MEDS ORDERED: MAGNESIUM SULFATE 2 GM in SODIUM CHLORIDE 0.9% 100 ML IV SCH (10:00)
[2017-11-20 10:30] LABS: NUCLEATED RED BLOOD CELLS 4 /100 WBC
[2017-11-20 10:31] LABS: PLATELET ESTIMATE DECREASED
[2017-11-20 10:51] LABS: PROTHROMBIN TIME 20.6 sec (9.4-11.6)
[2017-11-20 11:27] LABS: BG BASE EXCESS -0.6 mmol/L (-2.0-2.0); BG DEOXYHEMOGLOBIN 5.2 % (0.0-5.0); BG FRACTION INSPIRED OXYGEN 40; BG HCO3 ACT 25.8 mmol/L (22.0-26.0); BG METHEMOGLOBIN 0.2 % (0.0-1.5); BG OXYGEN SATURATION 94.7 % (92.0-98.5); BG OXYHEMOGLOBIN 93.6 % (94.0-97.0); BG PCO2 49.8 mmHg (35.0-45.0); BG PH 7.333 (7.350-7.450); BG PO2 85.5 mmHg (75.0-100.0); BG SAMPLE SITE RIGHT RADIAL; BG TOTAL HEMOGLOBIN 13.6 g/dL (12.0-18.0); BG VENT MODE T-TUBE
[2017-11-20] MEDS: METHYLPREDNISOLONE SOD SUCC 125 MG/2 ML VIAL IV SCH ×2 (14:16→21:11)
[2017-11-20] MEDS: DEXT 5%/0.9% NACL 1,000 ML IV SCH (19:00)
[2017-11-20 22:06] LABS: CREATINE KINASE 157 IU/L (26-192)
[2017-11-21] VITALS (39 sets, daily range): BP systolic 100–159; BP diastolic 47–95
[2017-11-21] MEDS: BLOOD SUGAR DIAGNOSTIC STRIP TEST SCH ×4 (00:03→18:11)
[2017-11-21] MEDS: DEXT 5%/0.9% NACL 1,000 ML IV SCH ×2 (00:55→21:30)
[2017-11-21] MEDS: IPRATROPIUM/ALBUTEROL 0.5-3(2.5)MG/3ML NEB INH SCH ×4 (01:56→20:03)
[2017-11-21 05:51] LABS: HEMATOCRIT. 35.5 % (36.0-48.0); HEMOGLOBIN. 11.8 g/dL (12.0-16.0); MEAN CORPUSCULAR HEMOGLOBIN 33.2 pg (28.0-32.0); MEAN CORPUSCULAR VOLUME 99.8 fL (81.0-99.0); MEAN PLATELET VOLUME 9.5 fl (7.4-10.4); PLATELET 81 x1000/uL (130-400); RED BLOOD CELL COUNT 3.56 mill/uL (4.2-5.4); RED CELL DISTRIBUTION WIDTH 15.9 % (11.6-14.6)
[2017-11-21] MEDS: METOCLOPRAMIDE HCL 10MG/2ML VIAL IV SCH ×3 (05:57→21:23)
[2017-11-21] MEDS: METHYLPREDNISOLONE SOD SUCC 125 MG/2 ML VIAL IV SCH ×3 (05:57→21:24)
[2017-11-21] MEDS: SODIUM CHLORIDE 0.9% INJ 3ML FLUSH IVF SCH ×3 (05:58→21:24)
[2017-11-21 05:59] LABS: CHLORIDE 101 mEq/L (98-107)
[2017-11-21 06:05] LABS: PHOSPHORUS 4.5 mg/dL (2.5-4.9)
[2017-11-21 06:14] LABS: AMMONIA 14 uMol/L (<32)
[2017-11-21] MEDS: NYSTATIN POWDER 15GM TOP SCH (09:14)
[2017-11-21] MEDS: PANTOPRAZOLE SODIUM 40 MG/VIAL IV SCH ×2 (09:20→21:23)
[2017-11-21] MEDS: THIAMINE HCL 100MG TABLET PO SCH (09:20)
[2017-11-21 10:59] LABS: NUCLEATED RED BLOOD CELLS 5 /100 WBC
[2017-11-21 13:04] LABS: PLATELET ESTIMATE SLIGHTLY DECREASED
[2017-11-22] VITALS (36 sets, daily range): BP systolic 115–158; BP diastolic 54–87
[2017-11-22] MEDS: IPRATROPIUM/ALBUTEROL 0.5-3(2.5)MG/3ML NEB INH SCH ×4 (01:45→20:28)
[2017-11-22 06:02] LABS: HEMATOCRIT. 35.4 % (36.0-48.0); HEMOGLOBIN. 11.7 g/dL (12.0-16.0); MEAN CORPUSCULAR HEMOGLOBIN 32.7 pg (28.0-32.0); MEAN CORPUSCULAR VOLUME 99.2 fL (81.0-99.0); MEAN PLATELET VOLUME 9.2 fl (7.4-10.4); PLATELET 77 x1000/uL (130-400); RED BLOOD CELL COUNT 3.57 mill/uL (4.2-5.4); RED CELL DISTRIBUTION WIDTH 16.1 % (11.6-14.6)
[2017-11-22 06:10] LABS: INR 1.9; PROTHROMBIN TIME 20.1 sec (9.4-11.6)
[2017-11-22 06:15] LABS: CHLORIDE 104 mEq/L (98-107)
[2017-11-22] MEDS: BLOOD SUGAR DIAGNOSTIC STRIP TEST SCH ×4 (06:18→18:45)
[2017-11-22] MEDS: METHYLPREDNISOLONE SOD SUCC 125 MG/2 ML VIAL IV SCH ×3 (06:18→21:50)
[2017-11-22] MEDS: METOCLOPRAMIDE HCL 10MG/2ML VIAL IV SCH ×3 (06:18→21:51)
[2017-11-22 06:27] LABS: PHOSPHORUS 4.9 mg/dL (2.5-4.9)
[2017-11-22] MEDS: THIAMINE HCL 100MG TABLET PO SCH (09:13)
[2017-11-22] MEDS: PANTOPRAZOLE SODIUM 40 MG/VIAL IV SCH ×2 (09:13→21:50)
[2017-11-22] MEDS: SODIUM CHLORIDE 0.9% INJ 3ML FLUSH IVF SCH ×3 (09:14→22:06)
[2017-11-22] MEDS: NYSTATIN POWDER 15GM TOP SCH (09:14)
[2017-11-22 09:50] LABS: NUCLEATED RED BLOOD CELLS 5 /100 WBC
[2017-11-22 09:51] LABS: PLATELET ESTIMATE DECREASED
[2017-11-22] MEDS ORDERED: LIDOCAINE HCL/EPINEPHRINE 1%-EPI 1:100,000 20 ML VIAL ONE (14:09)
[2017-11-22] MEDS: DEXT 5%/0.9% NACL 1,000 ML IV SCH (19:00)
[2017-11-23] VITALS (29 sets, daily range): BP systolic 100–173; BP diastolic 43–100
[2017-11-23] MEDS: BLOOD SUGAR DIAGNOSTIC STRIP TEST SCH ×5 (00:22→23:36)
[2017-11-23] MEDS: IPRATROPIUM/ALBUTEROL 0.5-3(2.5)MG/3ML NEB INH SCH ×4 (02:07→19:46)
[2017-11-23] MEDS: SODIUM CHLORIDE 0.9% INJ 3ML FLUSH IVF SCH ×3 (05:09→21:07)
[2017-11-23] MEDS: METHYLPREDNISOLONE SOD SUCC 125 MG/2 ML VIAL IV SCH ×3 (05:09→21:06)
[2017-11-23] MEDS: METOCLOPRAMIDE HCL 10MG/2ML VIAL IV SCH ×3 (05:09→21:06)
[2017-11-23 05:15] LABS: HEMATOCRIT. 35.8 % (36.0-48.0); MEAN CORPUSCULAR VOLUME 98.3 fL (81.0-99.0); MEAN PLATELET VOLUME 9.5 fl (7.4-10.4); PLATELET 71 x1000/uL (130-400); RED BLOOD CELL COUNT 3.64 mill/uL (4.2-5.4); RED CELL DISTRIBUTION WIDTH 15.8 % (11.6-14.6)
[2017-11-23 05:41] LABS: CHLORIDE 105 mEq/L (98-107)
[2017-11-23 05:43] LABS: PHOSPHORUS 5.1 mg/dL (2.5-4.9)
[2017-11-23] MEDS: PANTOPRAZOLE SODIUM 40 MG/VIAL IV SCH ×2 (08:19→20:45)
[2017-11-23] MEDS: NYSTATIN POWDER 15GM TOP SCH (08:19)
[2017-11-23] MEDS: THIAMINE HCL 100MG TABLET PO SCH (08:19)
[2017-11-23 09:33] LABS: PLATELET ESTIMATE DECREASED
[2017-11-23] MEDS: DEXT 5%/0.45% NACL 1000ML 1,000 ML IV SCH ×2 (11:45→22:10)
[2017-11-23] MEDS ORDERED: PHYTONADIONE 10MG/ML AMP SUBCUT SCH (19:15)
[2017-11-24] VITALS (50 sets, daily range): BP systolic 103–177; BP diastolic 42–112
[2017-11-24] MEDS: IPRATROPIUM/ALBUTEROL 0.5-3(2.5)MG/3ML NEB INH SCH ×4 (02:05→19:42)
[2017-11-24 04:50] LABS: HEMATOCRIT. 35.8 % (36.0-48.0); MEAN CORPUSCULAR HEMOGLOBIN 32.8 pg (28.0-32.0); MEAN CORPUSCULAR VOLUME 97.9 fL (81.0-99.0); MEAN PLATELET VOLUME 10.1 fl (7.4-10.4); PLATELET 73 x1000/uL (130-400); RED BLOOD CELL COUNT 3.66 mill/uL (4.2-5.4); RED CELL DISTRIBUTION WIDTH 15.7 % (11.6-14.6)
[2017-11-24 04:55] LABS: CHLORIDE 105 mEq/L (98-107)
[2017-11-24] MEDS: METHYLPREDNISOLONE SOD SUCC 125 MG/2 ML VIAL IV SCH ×3 (05:20→21:44)
[2017-11-24] MEDS: BLOOD SUGAR DIAGNOSTIC STRIP TEST SCH ×4 (05:20→23:36)
[2017-11-24] MEDS: SODIUM CHLORIDE 0.9% INJ 3ML FLUSH IVF SCH ×3 (05:20→21:44)
[2017-11-24] MEDS: METOCLOPRAMIDE HCL 10MG/2ML VIAL IV SCH ×3 (05:20→21:44)
[2017-11-24 09:21] LABS: NUCLEATED RED BLOOD CELLS 3 /100 WBC
[2017-11-24 09:23] LABS: PLATELET ESTIMATE DECREASED
[2017-11-24] MEDS: DEXT 5%/0.45% NACL 1000ML 1,000 ML IV SCH (09:29)
[2017-11-24] MEDS: THIAMINE HCL 100MG TABLET PO SCH (09:32)
[2017-11-24] MEDS: PANTOPRAZOLE SODIUM 40 MG/VIAL IV SCH ×2 (09:32→20:16)
[2017-11-24] MEDS: NYSTATIN POWDER 15GM TOP SCH (09:32)
[2017-11-24] MEDS: DEXT 5%/0.2% NACL 1,000 ML IV SCH ×2 (15:13→23:38)
[2017-11-24 16:38] LABS: INR 1.8
[2017-11-24] MEDS ORDERED: PHYTONADIONE 10MG/ML AMP SUBCUT NR (16:50)
[2017-11-25] VITALS (70 sets, daily range): BP systolic 106–152; BP diastolic 50–86
[2017-11-25] MEDS: IPRATROPIUM/ALBUTEROL 0.5-3(2.5)MG/3ML NEB INH SCH ×3 (01:51→14:11)
[2017-11-25] MEDS: METHYLPREDNISOLONE SOD SUCC 125 MG/2 ML VIAL IV SCH ×3 (05:40→22:48)
[2017-11-25] MEDS: BLOOD SUGAR DIAGNOSTIC STRIP TEST SCH ×3 (05:40→17:30)
[2017-11-25] MEDS: METOCLOPRAMIDE HCL 10MG/2ML VIAL IV SCH ×3 (05:40→22:48)
[2017-11-25] MEDS: SODIUM CHLORIDE 0.9% INJ 3ML FLUSH IVF SCH ×3 (06:00→22:00)
[2017-11-25] MEDS: DEXT 5%/0.2% NACL 1,000 ML IV SCH ×2 (07:00→13:03)
[2017-11-25 07:41] LABS: CHLORIDE 104 mEq/L (98-107); HEMOGLOBIN. 10.5 g/dL (12.0-16.0); MEAN CORPUSCULAR VOLUME 97.4 fL (81.0-99.0); PLATELET 56 x1000/uL (130-400); RED BLOOD CELL COUNT 3.19 mill/uL (4.2-5.4); RED CELL DISTRIBUTION WIDTH 16.4 % (11.6-14.6)
[2017-11-25 07:44] LABS: INR 1.6; PARTIAL THROMBOPLASTIN TIME 29.2 sec (23.4-31.0); PROTHROMBIN TIME 16.7 sec (9.4-11.6)
[2017-11-25] MEDS ORDERED: CLINDAMYCIN 600 MG in DEXTROSE 5% WATER 50 ML IV NR (09:00)
[2017-11-25] MEDS ORDERED: CLINDAMYCIN 600MG PREMIX 50 ML IV NR (09:30)
[2017-11-25] MEDS: PANTOPRAZOLE SODIUM 40 MG/VIAL IV SCH ×2 (09:32→20:36)
[2017-11-25] MEDS: THIAMINE HCL 100MG TABLET PO SCH (09:32)
[2017-11-25] MEDS: NYSTATIN POWDER 15GM TOP SCH (09:32)
[2017-11-25 10:06] LABS: NUCLEATED RED BLOOD CELLS 3 /100 WBC
[2017-11-25 10:07] LABS: PLATELET ESTIMATE DECREASED
[2017-11-25] MEDS ORDERED: LIDOCAINE HCL/EPINEPHRINE 1%-EPI 1:100,000 20 ML VIAL ONE (13:46)
[2017-11-25] MEDS ORDERED: MIDAZOLAM HCL 5 MG/5 ML VIAL ONE ×2 (13:58→15:22)
[2017-11-25] MEDS ORDERED: FENTANYL CITRATE/PF 50MCG/ML 2ML VIAL ONE (13:59)
[2017-11-25] MEDS ORDERED: MIDAZOLAM HCL 5 MG/5 ML VIAL IV PRN (14:12)
[2017-11-25] MEDS ORDERED: ROCURONIUM BROMIDE 10MG/ML VIAL 5ML IV ONE ×2 (14:42→15:06)
[2017-11-25] MEDS ORDERED: SODIUM CHLORIDE 0.9% 10ML VIAL ONE (14:52)
[2017-11-26] VITALS (49 sets, daily range): BP systolic 111–156; BP diastolic 52–91
[2017-11-26] MEDS: IPRATROPIUM/ALBUTEROL 0.5-3(2.5)MG/3ML NEB INH SCH ×5 (00:31→20:48)
[2017-11-26] MEDS: DEXT 5%/0.2% NACL 1,000 ML IV SCH ×3 (03:15→20:54)
[2017-11-26] MEDS: METOCLOPRAMIDE HCL 10MG/2ML VIAL IV SCH ×2 (05:21→23:53)
[2017-11-26] MEDS: METHYLPREDNISOLONE SOD SUCC 125 MG/2 ML VIAL IV SCH (05:22)
[2017-11-26] MEDS: SODIUM CHLORIDE 0.9% INJ 3ML FLUSH IVF SCH ×3 (05:22→20:58)
[2017-11-26] MEDS: BLOOD SUGAR DIAGNOSTIC STRIP TEST SCH ×5 (05:27→23:53)
[2017-11-26 05:42] LABS: CHLORIDE 104 mEq/L (98-107)
[2017-11-26 06:11] LABS: HEMATOCRIT. 31.4 % (36.0-48.0); HEMOGLOBIN. 10.7 g/dL (12.0-16.0); MEAN CORPUSCULAR HEMOGLOBIN 32.9 pg (28.0-32.0); MEAN CORPUSCULAR VOLUME 96.8 fL (81.0-99.0); MEAN PLATELET VOLUME 9.5 fl (7.4-10.4); PLATELET 68 x1000/uL (130-400); RED BLOOD CELL COUNT 3.24 mill/uL (4.2-5.4); RED CELL DISTRIBUTION WIDTH 15.9 % (11.6-14.6)
[2017-11-26 08:22] LABS: BG BASE EXCESS 0.7 mmol/L (-2.0-2.0); BG CARBOXYHEMOGLOBIN 1.4 % (0.5-1.5); BG DEOXYHEMOGLOBIN 5.4 % (0.0-5.0); BG FRACTION INSPIRED OXYGEN 40; BG HCO3 ACT 26.2 mmol/L (22.0-26.0); BG METHEMOGLOBIN 0.2 % (0.0-1.5); BG OXYGEN SATURATION 94.5 % (92.0-98.5); BG PCO2 45.5 mmHg (35.0-45.0); BG PH 7.378 (7.350-7.450); BG PO2 78.6 mmHg (75.0-100.0); BG PRESSURE SUPPORT 10; BG SAMPLE SITE RIGHT RADIAL; BG TIDAL VOLUME(mL) 550 mL; BG TOTAL HEMOGLOBIN 11.8 g/dL (12.0-18.0); BG VENT MODE VENT - SIMV; BG VENT RATE 8 set
[2017-11-26] MEDS: PANTOPRAZOLE SODIUM 40 MG/VIAL IV SCH ×2 (09:40→20:58)
[2017-11-26] MEDS: THIAMINE HCL 100MG TABLET PO SCH (09:40)
[2017-11-26] MEDS: NYSTATIN POWDER 15GM TOP SCH (09:41)
[2017-11-26 13:09] LABS: PLATELET ESTIMATE DECREASED
[2017-11-26] MEDS ORDERED: METOCLOPRAMIDE 10MG/10 ML UDC PO SCH (14:00)
[2017-11-26] MEDS ORDERED: SIMETHICONE 80MG TABLET CHEW PO SCH (17:00)
[2017-11-26] MEDS: METHYLPREDNISOLONE SOD SUCC 40 MG/ML VIAL IV SCH (17:40)
[2017-11-26] MEDS ORDERED: BISACODYL 10MG SUPP PR NR (20:15)
[2017-11-26 20:36] LABS: AMMONIA < 10 uMol/L (<32)
[2017-11-27] VITALS (48 sets, daily range): BP systolic 101–171; BP diastolic 51–127
[2017-11-27] MEDS: DEXT 5%/0.2% NACL 1,000 ML IV SCH ×2 (05:10→07:00)
[2017-11-27] MEDS: SODIUM CHLORIDE 0.9% INJ 3ML FLUSH IVF SCH ×3 (05:10→21:40)
[2017-11-27] MEDS: METOCLOPRAMIDE HCL 10MG/2ML VIAL IV SCH ×3 (05:10→17:13)
[2017-11-27] MEDS: BLOOD SUGAR DIAGNOSTIC STRIP TEST SCH ×3 (05:19→17:09)
[2017-11-27 05:32] LABS: HEMATOCRIT. 33.5 % (36.0-48.0); HEMOGLOBIN. 11.1 g/dL (12.0-16.0); MEAN CORPUSCULAR HEMOGLOBIN 32.4 pg (28.0-32.0); MEAN CORPUSCULAR VOLUME 97.9 fL (81.0-99.0); MEAN PLATELET VOLUME 9.5 fl (7.4-10.4); PLATELET 55 x1000/uL (130-400); RED BLOOD CELL COUNT 3.42 mill/uL (4.2-5.4); RED CELL DISTRIBUTION WIDTH 16.1 % (11.6-14.6)
[2017-11-27] MEDS: CLONIDINE 0.1MG TABLET PO PRN (05:43)
[2017-11-27 05:45] LABS: CHLORIDE 101 mEq/L (98-107)
[2017-11-27 06:05] LABS: PHOSPHORUS 5.7 mg/dL (2.5-4.9)
[2017-11-27] MEDS: IPRATROPIUM/ALBUTEROL 0.5-3(2.5)MG/3ML NEB INH SCH ×3 (08:23→20:16)
[2017-11-27] MEDS: METHYLPREDNISOLONE SOD SUCC 40 MG/ML VIAL IV SCH ×2 (08:32→08:40)
[2017-11-27] MEDS: PANTOPRAZOLE SODIUM 40 MG/VIAL IV SCH ×2 (08:32→21:39)
[2017-11-27] MEDS: THIAMINE HCL 100MG TABLET PO SCH (08:32)
[2017-11-27 09:19] LABS: BG CARBOXYHEMOGLOBIN 2.4 % (0.5-1.5); BG DEOXYHEMOGLOBIN 5.4 % (0.0-5.0); BG FRACTION INSPIRED OXYGEN 40; BG HCO3 ACT 25.1 mmol/L (22.0-26.0); BG METHEMOGLOBIN 0.3 % (0.0-1.5); BG OXYGEN SATURATION 94.5 % (92.0-98.5); BG OXYHEMOGLOBIN 91.9 % (94.0-97.0); BG PCO2 47.6 mmHg (35.0-45.0); BG PO2 77.1 mmHg (75.0-100.0); BG PRESSURE SUPPORT 10; BG SAMPLE SITE RIGHT RADIAL; BG TOTAL HEMOGLOBIN 11.6 g/dL (12.0-18.0); BG VENT MODE VENT - CPAP
[2017-11-27 11:30] LABS: PLATELET ESTIMATE DECREASED
[2017-11-27] MEDS: NYSTATIN POWDER 15GM TOP SCH (12:42)
[2017-11-27] MEDS: DOCUSATE SODIUM SUGAR FREE 100MG/10ML UDC NG SCH ×2 (12:42→17:13)
[2017-11-28] VITALS (69 sets, daily range): BP systolic 83–159; BP diastolic 41–132
[2017-11-28] MEDS: BLOOD SUGAR DIAGNOSTIC STRIP TEST SCH ×4 (00:25→17:29)
[2017-11-28] MEDS: METOCLOPRAMIDE HCL 10MG/2ML VIAL IV SCH ×4 (00:32→17:29)
[2017-11-28] MEDS: DIPHENHYDRAMINE 50MG/ML VIAL IV PRN ×2 (00:52→06:17)
[2017-11-28] MEDS: IPRATROPIUM/ALBUTEROL 0.5-3(2.5)MG/3ML NEB INH SCH ×3 (01:23→13:48)
[2017-11-28 05:54] LABS: HEMATOCRIT. 32.6 % (36.0-48.0); MEAN CORPUSCULAR HEMOGLOBIN 32.4 pg (28.0-32.0); MEAN CORPUSCULAR VOLUME 96.2 fL (81.0-99.0); MEAN PLATELET VOLUME 10.1 fl (7.4-10.4); RED BLOOD CELL COUNT 3.39 mill/uL (4.2-5.4); RED CELL DISTRIBUTION WIDTH 16.2 % (11.6-14.6)
[2017-11-28] MEDS: SODIUM CHLORIDE 0.9% INJ 3ML FLUSH IVF SCH ×3 (06:17→21:23)
[2017-11-28 06:29] LABS: CHLORIDE 100 mEq/L (98-107)
[2017-11-28 06:36] LABS: PHOSPHORUS 5.4 mg/dL (2.5-4.9)
[2017-11-28 07:33] LABS: PLATELET ESTIMATE MARKEDLY DECREASED
[2017-11-28 07:35] LABS: PLATELET 49 x1000/uL (130-400)
[2017-11-28] MEDS: DOCUSATE SODIUM SUGAR FREE 100MG/10ML UDC NG SCH ×2 (10:32→17:29)
[2017-11-28] MEDS: METHYLPREDNISOLONE SOD SUCC 40 MG/ML VIAL IV SCH (10:32)
[2017-11-28] MEDS: PANTOPRAZOLE SODIUM 40 MG/VIAL IV SCH ×2 (10:32→21:24)
[2017-11-28] MEDS: THIAMINE HCL 100MG TABLET PO SCH (10:32)
[2017-11-28] MEDS: NYSTATIN POWDER 15GM TOP SCH (10:33)
[2017-11-28] MEDS: MEROPENEM 500 MG in SODIUM CHLORIDE 0.9% 50 ML IV SCH (17:29)
[2017-11-29] VITALS (91 sets, daily range): BP systolic 72–160; BP diastolic 41–134
[2017-11-29 00:09] LABS: CLARITY URINE CLOUDY (CLEAR); COLOR URINE DARK YELLOW (YELLOW); KETONES URINE NEGATIVE (NEGATIVE); LEUKOCYTE ESTERASE URINE 2+ (NEGATIVE); NITRITE URINE NEGATIVE (NEGATIVE); OCCULT BLOOD URINE 3+ (NEGATIVE); PROTEIN URINE 1+ (NEGATIVE); SPECIFIC GRAVITY URINE 1.012 (1.005-1.030)
[2017-11-29] MEDS: BLOOD SUGAR DIAGNOSTIC STRIP TEST SCH ×4 (00:29→18:00)
[2017-11-29] MEDS: METOCLOPRAMIDE HCL 10MG/2ML VIAL IV SCH ×4 (00:30→18:30)
[2017-11-29] MEDS: IPRATROPIUM/ALBUTEROL 0.5-3(2.5)MG/3ML NEB INH SCH ×4 (01:40→19:48)
[2017-11-29] MEDS: SODIUM CHLORIDE 0.9% INJ 3ML FLUSH IVF SCH ×3 (05:01→21:09)
[2017-11-29] MEDS: MEROPENEM 500 MG in SODIUM CHLORIDE 0.9% 50 ML IV SCH ×2 (05:01→18:31)
[2017-11-29 06:13] LABS: HEMOGLOBIN. 10.3 g/dL (12.0-16.0); MEAN CORPUSCULAR HEMOGLOBIN 32.6 pg (28.0-32.0); MEAN CORPUSCULAR VOLUME 95.3 fL (81.0-99.0); MEAN PLATELET VOLUME 10.5 fl (7.4-10.4); RED BLOOD CELL COUNT 3.15 mill/uL (4.2-5.4); RED CELL DISTRIBUTION WIDTH 16.2 % (11.6-14.6)
[2017-11-29 06:20] LABS: CHLORIDE 104 mEq/L (98-107)
[2017-11-29 06:26] LABS: PLATELET 37 x1000/uL (130-400)
[2017-11-29 06:27] LABS: PHOSPHORUS 4.6 mg/dL (2.5-4.9)
[2017-11-29 07:16] LABS: NUCLEATED RED BLOOD CELLS 1 /100 WBC
[2017-11-29 07:17] LABS: PLATELET ESTIMATE MARKEDLY DECREASED
[2017-11-29] MEDS ORDERED: NA PHOS,M-B/NA PHOS,DI-BA ENEMA 118ML PR PRN (08:45)
[2017-11-29] MEDS ORDERED: BISACODYL 10MG SUPP PR NR (08:45)
[2017-11-29] MEDS: PANTOPRAZOLE SODIUM 40 MG/VIAL IV SCH ×2 (10:31→21:09)
[2017-11-29] MEDS: DOCUSATE SODIUM SUGAR FREE 100MG/10ML UDC NG SCH ×2 (10:32→18:38)
[2017-11-29] MEDS: THIAMINE HCL 100MG TABLET PO SCH (10:32)
[2017-11-29] MEDS: CARVEDILOL 3.125 MG TABLET PO SCH ×2 (10:32→21:08)
[2017-11-29] MEDS: NYSTATIN POWDER 15GM TOP SCH (14:20)
[2017-11-29] MEDS: ATORVASTATIN CALCIUM 10MG TABLET PO SCH (21:09)
[2017-11-30] VITALS (74 sets, daily range): BP systolic 86–161; BP diastolic 23–128
[2017-11-30] MEDS: METOCLOPRAMIDE HCL 10MG/2ML VIAL IV SCH ×4 (00:35→17:15)
[2017-11-30] MEDS: BLOOD SUGAR DIAGNOSTIC STRIP TEST SCH ×5 (00:35→20:00)
[2017-11-30] MEDS: IPRATROPIUM/ALBUTEROL 0.5-3(2.5)MG/3ML NEB INH SCH ×4 (01:38→20:11)
[2017-11-30] MEDS: MEROPENEM 500 MG in SODIUM CHLORIDE 0.9% 50 ML IV SCH ×2 (04:01→17:15)
[2017-11-30 05:34] LABS: HEMATOCRIT. 27.9 % (36.0-48.0); HEMOGLOBIN. 9.8 g/dL (12.0-16.0); MEAN CORPUSCULAR VOLUME 94.2 fL (81.0-99.0); MEAN PLATELET VOLUME 10.9 fl (7.4-10.4); RED BLOOD CELL COUNT 2.96 mill/uL (4.2-5.4); RED CELL DISTRIBUTION WIDTH 16.1 % (11.6-14.6)
[2017-11-30 05:42] LABS: INR 1.9
[2017-11-30 05:54] LABS: CHLORIDE 106 mEq/L (98-107)
[2017-11-30] MEDS: SODIUM CHLORIDE 0.9% INJ 3ML FLUSH IVF SCH ×3 (05:57→22:00)
[2017-11-30 06:03] LABS: PHOSPHORUS 4.8 mg/dL (2.5-4.9)
[2017-11-30 06:18] LABS: PLATELET 29 x1000/uL (130-400)
[2017-11-30] MEDS ORDERED: PHYTONADIONE 10MG/ML AMP SUBCUT SCH (08:30)
[2017-11-30] MEDS: CARVEDILOL 3.125 MG TABLET PO SCH ×2 (09:00→21:00)
[2017-11-30] MEDS ORDERED: BISACODYL 10MG SUPP PR PRN (09:00)
[2017-11-30] MEDS: PANTOPRAZOLE SODIUM 40 MG/VIAL IV SCH ×2 (09:24→21:04)
[2017-11-30] MEDS: NYSTATIN POWDER 15GM TOP SCH (09:25)
[2017-11-30] MEDS: THIAMINE HCL 100MG TABLET PO SCH (09:25)
[2017-11-30] MEDS: DOCUSATE SODIUM SUGAR FREE 100MG/10ML UDC NG SCH ×2 (09:31→17:16)
[2017-11-30 10:14] LABS: NUCLEATED RED BLOOD CELLS 3 /100 WBC; PLATELET ESTIMATE MARKEDLY DECREASED
[2017-11-30] MEDS ORDERED: DEXTROSE 10% WATER 1,000 ML IV SCH (20:00)
[2017-11-30] MEDS: DEXTROSE 10% WATER 1000ML IV SCH (20:46)
[2017-11-30] MEDS: ATORVASTATIN CALCIUM 10MG TABLET PO SCH (21:00)
[2017-12-01] VITALS (66 sets, daily range): BP systolic 66–154; BP diastolic 28–71
[2017-12-01] MEDS: METOCLOPRAMIDE HCL 10MG/2ML VIAL IV SCH ×5 (00:19→23:44)
[2017-12-01] MEDS: IPRATROPIUM/ALBUTEROL 0.5-3(2.5)MG/3ML NEB INH SCH ×4 (02:08→19:52)
[2017-12-01] MEDS: BLOOD SUGAR DIAGNOSTIC STRIP TEST SCH ×7 (04:33→23:44)
[2017-12-01] MEDS: MEROPENEM 500 MG in SODIUM CHLORIDE 0.9% 50 ML IV SCH ×2 (05:15→17:00)
[2017-12-01 05:31] LABS: HEMATOCRIT. 28.6 % (36.0-48.0); HEMOGLOBIN. 9.9 g/dL (12.0-16.0); MEAN CORPUSCULAR HEMOGLOBIN 32.6 pg (28.0-32.0); MEAN CORPUSCULAR VOLUME 94.3 fL (81.0-99.0); MEAN PLATELET VOLUME 10.9 fl (7.4-10.4); RED BLOOD CELL COUNT 3.04 mill/uL (4.2-5.4); RED CELL DISTRIBUTION WIDTH 15.7 % (11.6-14.6)
[2017-12-01] MEDS: SODIUM CHLORIDE 0.9% INJ 3ML FLUSH IVF SCH ×3 (05:35→21:29)
[2017-12-01 05:44] LABS: CHLORIDE 108 mEq/L (98-107)
[2017-12-01 05:54] LABS: PLATELET 26 x1000/uL (130-400)
[2017-12-01 05:55] LABS: PHOSPHORUS 4.3 mg/dL (2.5-4.9)
[2017-12-01] MEDS: NYSTATIN POWDER 15GM TOP SCH (09:00)
[2017-12-01] MEDS: MICAFUNGIN 100 MG in SODIUM CHLORIDE 0.9% 100 ML IV SCH (09:00)
[2017-12-01 09:15] LABS: NUCLEATED RED BLOOD CELLS 1 /100 WBC; PLATELET ESTIMATE MARKEDLY DECREASED
[2017-12-01] MEDS: PANTOPRAZOLE SODIUM 40 MG/VIAL IV SCH ×2 (09:45→21:28)
[2017-12-01] MEDS: THIAMINE HCL 100MG TABLET PO SCH (09:46)
[2017-12-01] MEDS: DOCUSATE SODIUM SUGAR FREE 100MG/10ML UDC NG SCH ×2 (09:46→17:00)
[2017-12-01] MEDS: CARVEDILOL 3.125 MG TABLET PO SCH ×2 (09:46→21:28)
[2017-12-01] MEDS ORDERED: NA PHOS,M-B/NA PHOS,DI-BA ENEMA 118ML PR SCH (10:30)
[2017-12-01] MEDS ORDERED: BISACODYL 10MG SUPP PR SCH (10:45)
[2017-12-01] MEDS: ATORVASTATIN CALCIUM 10MG TABLET PO SCH (21:27)
[2017-12-02] VITALS (59 sets, daily range): BP systolic 76–143; BP diastolic 31–100
[2017-12-02] MEDS: IPRATROPIUM/ALBUTEROL 0.5-3(2.5)MG/3ML NEB INH SCH ×4 (01:54→20:36)
[2017-12-02] MEDS: BLOOD SUGAR DIAGNOSTIC STRIP TEST SCH ×5 (04:46→20:00)
[2017-12-02] MEDS: MEROPENEM 500 MG in SODIUM CHLORIDE 0.9% 50 ML IV SCH ×2 (04:46→17:00)
[2017-12-02] MEDS: SODIUM CHLORIDE 0.9% INJ 3ML FLUSH IVF SCH ×3 (05:13→22:00)
[2017-12-02] MEDS: METOCLOPRAMIDE HCL 10MG/2ML VIAL IV SCH ×3 (05:22→18:17)
[2017-12-02 05:43] LABS: HEMATOCRIT. 27.2 % (36.0-48.0); HEMOGLOBIN. 9.5 g/dL (12.0-16.0); MEAN CORPUSCULAR HEMOGLOBIN 32.8 pg (28.0-32.0); MEAN CORPUSCULAR VOLUME 94.1 fL (81.0-99.0); MEAN PLATELET VOLUME 10.5 fl (7.4-10.4); RED BLOOD CELL COUNT 2.89 mill/uL (4.2-5.4); RED CELL DISTRIBUTION WIDTH 16.4 % (11.6-14.6)
[2017-12-02 05:51] LABS: CHLORIDE 109 mEq/L (98-107)
[2017-12-02 05:58] LABS: PLATELET 19 x1000/uL (130-400)
[2017-12-02 06:02] LABS: PHOSPHORUS 4.7 mg/dL (2.5-4.9)
[2017-12-02] MEDS: MICAFUNGIN 100 MG in SODIUM CHLORIDE 0.9% 100 ML IV SCH ×2 (09:00→13:35)
[2017-12-02] MEDS: CARVEDILOL 3.125 MG TABLET PO SCH ×2 (09:00→22:12)
[2017-12-02] MEDS: PANTOPRAZOLE SODIUM 40 MG/VIAL IV SCH ×2 (09:18→22:11)
[2017-12-02] MEDS: DOCUSATE SODIUM SUGAR FREE 100MG/10ML UDC NG SCH ×2 (09:19→18:18)
[2017-12-02] MEDS: THIAMINE HCL 100MG TABLET PO SCH (09:19)
[2017-12-02] MEDS: NYSTATIN POWDER 15GM TOP SCH (09:20)
[2017-12-02] MEDS: DEXTROSE 10% WATER 1000ML IV SCH (09:25)
[2017-12-02 10:28] LABS: INR 1.5; PROTHROMBIN TIME 16.1 sec (9.4-11.6)
[2017-12-02 12:12] LABS: PLATELET ESTIMATE MARKEDLY DECREASED
[2017-12-02 13:34] LABS: D-DIMER 12.53 mg/L FEU (<0.50)
[2017-12-02] MEDS: ATORVASTATIN CALCIUM 10MG TABLET PO SCH (22:11)
== END 2017-12-02 23:57 | DRG 4 ==
LOC: ER 19:41 → EDBEDREQTM 23:31 → EDBEDREQ 23:31 → EDBEDREQTM 11-10 05:22 → EDBEDREQSVC 11-10 05:22 → EDBEDREQDT 11-10 05:22 → ENRESERV 11-10 07:09 → MICUSO 11-10 07:09
PROVIDERS: ADMIT Family Medicine; ATTEND Family Medicine
PROC: 5A09457 Assistance with Respiratory Ventilation, 24-96 Consecutive Hours, Continuous Positive Airway Pressure (ICD-10-PCS; 2017-11-09)
PROC: 30233R1 Transfusion of Nonautologous Platelets into Peripheral Vein, Percutaneous Approach (ICD-10-PCS; 2017-11-10)
PROC: 0BH17EZ Insertion of Endotracheal Airway into Trachea, Via Natural or Artificial Opening (ICD-10-PCS; 2017-11-11)
PROC: 5A1955Z Respiratory Ventilation, Greater than 96 Consecutive Hours (ICD-10-PCS; 2017-11-11)
PROC: 0BH17EZ Insertion of Endotracheal Airway into Trachea, Via Natural or Artificial Opening (ICD-10-PCS; 2017-11-16)
PROC: 02HV33Z Insertion of Infusion Device into Superior Vena Cava, Percutaneous Approach (ICD-10-PCS; 2017-11-19)
PROC: B548ZZA Ultrasonography of Superior Vena Cava, Guidance (ICD-10-PCS; 2017-11-19)
PROC: 5A1955Z Respiratory Ventilation, Greater than 96 Consecutive Hours (ICD-10-PCS; 2017-11-25)
PROC: 0DH63UZ Insertion of Feeding Device into Stomach, Percutaneous Approach (ICD-10-PCS; 2017-11-25)
PROC: 30233L1 Transfusion of Nonautologous Fresh Plasma into Peripheral Vein, Percutaneous Approach (ICD-10-PCS; 2017-11-25)
PROC: 30233K1 Transfusion of Nonautologous Frozen Plasma into Peripheral Vein, Percutaneous Approach (ICD-10-PCS; 2017-11-25)
PROC: 0B110F4 Bypass Trachea to Cutaneous with Tracheostomy Device, Open Approach (ICD-10-PCS; principal; 2017-11-25 12:00)
PROC: 02HV33Z Insertion of Infusion Device into Superior Vena Cava, Percutaneous Approach (ICD-10-PCS; 2017-11-28)
PROC: B548ZZA Ultrasonography of Superior Vena Cava, Guidance (ICD-10-PCS; 2017-11-28)
PROC: 5A1D70Z Performance of Urinary Filtration, Intermittent, Less than 6 Hours Per Day (ICD-10-PCS; 2017-11-28)
PROC: 5A1D70Z Performance of Urinary Filtration, Intermittent, Less than 6 Hours Per Day (ICD-10-PCS; 2017-11-30)
PROC: 5A1D70Z Performance of Urinary Filtration, Intermittent, Less than 6 Hours Per Day (ICD-10-PCS; 2017-12-02)
DX: A41.9 Sepsis, unspecified organism (principal); I21.4 Non-ST elevation (NSTEMI) myocardial infarction; J18.9 Pneumonia, unspecified organism; J96.21 Acute and chronic respiratory failure with hypoxia; R53.2 Functional quadriplegia; R65.21 Severe sepsis with septic shock; N17.0 Acute kidney failure with tubular necrosis; D65 Disseminated intravascular coagulation [defibrination syndrome]; K72.00 Acute and subacute hepatic failure without coma; N18.6 End stage renal disease; G93.41 Metabolic encephalopathy; E43 Unspecified severe protein-calorie malnutrition; I50.23 Acute on chronic systolic (congestive) heart failure; E87.2 Acidosis; L03.116 Cellulitis of left lower limb; L03.115 Cellulitis of right lower limb; J44.1 Chronic obstructive pulmonary disease with (acute) exacerbation; J44.0 Chronic obstructive pulmonary disease with (acute) lower respiratory infection; E87.0 Hyperosmolality and hypernatremia; E87.1 Hypo-osmolality and hyponatremia; I42.9 Cardiomyopathy, unspecified; I13.2 Hypertensive heart and chronic kidney disease with heart failure and with stage 5 chronic kidney disease, or end stage renal disease; I47.1 Supraventricular tachycardia; K56.7 Ileus, unspecified; K80.01 Calculus of gallbladder with acute cholecystitis with obstruction; K92.2 Gastrointestinal hemorrhage, unspecified; M62.82 Rhabdomyolysis; N39.0 Urinary tract infection, site not specified; E87.4 Mixed disorder of acid-base balance; Z68.43 Body mass index [BMI] 50.0-59.9, adult; Z99.11 Dependence on respirator [ventilator] status; K29.60 Other gastritis without bleeding; B96.20 Unspecified Escherichia coli [E. coli] as the cause of diseases classified elsewhere; Z99.81 Dependence on supplemental oxygen; D53.9 Nutritional anemia, unspecified; E11.22 Type 2 diabetes mellitus with diabetic chronic kidney disease; E66.01 Morbid (severe) obesity due to excess calories; E11.43 Type 2 diabetes mellitus with diabetic autonomic (poly)neuropathy; E11.649 Type 2 diabetes mellitus with hypoglycemia without coma; E78.5 Hyperlipidemia, unspecified; E83.42 Hypomagnesemia; E89.0 Postprocedural hypothyroidism; G47.30 Sleep apnea, unspecified; I25.10 Atherosclerotic heart disease of native coronary artery without angina pectoris; I45.10 Unspecified right bundle-branch block; I27.20 Pulmonary hypertension, unspecified; I87.8 Other specified disorders of veins; E05.00 Thyrotoxicosis with diffuse goiter without thyrotoxic crisis or storm; K31.84 Gastroparesis; K76.0 Fatty (change of) liver, not elsewhere classified; L30.4 Erythema intertrigo; M19.90 Unspecified osteoarthritis, unspecified site; Z16.12 Extended spectrum beta lactamase (ESBL) resistance; Z87.891 Personal history of nicotine dependence; Z90.710 Acquired absence of both cervix and uterus; Z95.810 Presence of automatic (implantable) cardiac defibrillator; Z99.2 Dependence on renal dialysis; Z88.0 Allergy status to penicillin; Z88.2 Allergy status to sulfonamides; Z88.8 Allergy status to other drugs, medicaments and biological substances; Z88.6 Allergy status to analgesic agent; Z88.1 Allergy status to other antibiotic agents; Z91.041 Radiographic dye allergy status
CPT/HCPCS: 31500; 36415; 36555; 36569; 36600; 51702; 70450; 71045; 71250; 74018; 74176; 76700; 76705; 76937; 78227; 78580; 80048; 80053; 80061; 80076; 80202; 80305; 81003; 82140; 82248; 82375; 82436; 82533; 82542; 82550; 82553; 82607; 82728; 82746; 82805; 82947; 82962; 83036; 83540; 83550; 83605; 83690; 83735; 83880; 84100; 84134; 84145; 84439; 84443; 84478; 84484; 85025; 85379; 85384; 85610; 85730; 86022; 86705; 86709; 86803; 86850; 86900; 86927; 87040; 87070; 87077; 87086; 87107; 87186; 87340; 93005; 93306; 93923; 93970; 94002; 94003; 94640; 94660; 96365; 96366; 96367; 96375; 99291; A4216; A6261; A9537; C1725; C1752; C9113; G0482; J0330; J1200; J1956; J2060; J2185; J2248; J2250; J2704; J2765; J2920; J2930; J3010; J3370; J3430; J3475; J3490; J7030; J7040; J7042; J7050; J7060; J7070; J7611; J7620; J7626; J8597; P9017; P9034; P9047; A4315